=== PATIENT | male | born 1965 | race Caucasian/White ===

== ENCOUNTER 2022-10-15 19:40 | Inpatient (IN) ==
[2022-10-15] MEDS ORDERED: CEFEPIME 2,000 MG/20 ML VIAL IV STA (20:19)
[2022-10-15 20:55] LABS: Albumin Globulin Ratio 1.2 (0.9-2); Albumin Level 3.6 gm/dl (3.4-5.0); BUN Creatinine Ratio 13.3 (10-20); Bilirubin Direct 0.1 mg/dl (0-0.2); Bilirubin,Total 0.5 mg/dl (0.2-1.0); Calcium 8.9 mg/dl (8.5-10.1); Creatinine Clr Calc Pharmacy 94.5 ml/min; Est GFR (African American) 82.6 ml/min; Est GFR (Non-African American) 71.3 ml/min; Globulin 3.1 gm/dl (2.5-4.0); Magnesium 1.9 mg/dl (1.7-2.4); Potassium 3.9 mmol/L (3.5-5.1); Total Protein 6.7 gm/dl (6.0-8.3)
[2022-10-15 20:57] LABS: INR 1.2 (0.9-1.1); Partial Thromboplastin Ratio 1.1; Partial Thromboplastin Time 31.3 Seconds (21.0-31.0); Prothrombin Time 12.2 Seconds (9.0-12.0)
[2022-10-15 21:02] LABS: Troponin I High Sensitivity 27.5 pg/ml (0-20)
[2022-10-15] MEDS ORDERED: VANCOMYCIN CONSULT ACTIVE PRN (21:06)
[2022-10-15] MEDS ORDERED: VANCOMYCIN HCL 2,250 MG in SODIUM CHLORIDE 0.9% 500 ML IV ONE (21:06)
[2022-10-15 21:16] LABS: Influenza A virus by PCR Negative (Neg); Influenza B virus by PCR Negative (Neg); RSV by PCR Negative (Neg)
[2022-10-15 21:18] LABS: SARS CoV2 RNA(COVID-19) Ceph POSITIVE (Negative)
[2022-10-15] MEDS ORDERED: OPTIRAY 320 500ml IV ONE (21:44)
[2022-10-15 22:41] LABS: Basophils # (auto) 0.08 K/uL (0-0.2); Basophils % (auto) 1.1 %; Eosinophils # (auto) 0.24 K/uL (0-0.50); Eosinophils % (auto) 3.3 %; Giant Platelets 2+; Hematocrit (blood only) 27.8 % (42.0-52.0); Hemoglobin 8.7 g/dl (14.0-18.0); Immature Granulocytes # (auto) 0.01 K/uL (0.01-0.20); Immature Granulocytes % (auto) 0.1 %; Lymphocytes # (auto) 2.09 K/uL (1.2-3.4); Lymphocytes % (auto) 28.9 %; Mean Corpuscular Hemoglobin 28.1 pg (25.0-34.0); Mean Corpuscular Hgb Conc 31.3 g/dL (32.0-36.0); Mean Corpuscular Volume 89.7 fL (80.0-100.0); Mean Platelet Volume 13.2 fL (9.4-12.4); Monocytes # (auto) 1.22 K/uL (0.11-0.59); Monocytes % (auto) 16.9 %; Neutrophils # (auto) 3.58 K/uL (1.40-6.50); Neutrophils % (auto) 49.7 %; Platelet Count 517 K/uL (130-400); RDW Coefficient of Variation 15.9 % (11.5-14.5); RDW Standard Deviation 51.1 fL (36.4-46.3); White Blood Count 7.22 K/ul (4.8-10.8)
[2022-10-15 23:55] LABS: Appearance Urine Clear (Clear); Bilirubin Urine Negative (Negative); Blood Urine Negative (Negative); Color Urine Yellow; Glucose Urine UA Negative (Negative); Ketones Urine Negative (Negative); Leukocyte Esterase Urine Negative (Negative); Nitrite Urine Negative (Negative); Protein Urine Negative (Negative); Specific Gravity Urine > 1.045 (1.000-1.030); Urobilinogen Urine Negative (Negative); pH Urine 6.5 (4.5-7.5)
--- NOTE | 2022-10-16 02:17 | Emergency Department Note ---
History of Present Illness General Chief complaint: Fever Stated complaint: HIGH FEVER Time Seen by Provider: 10/15/22 20:08 Source: patient, family (Fihimanshu who is at the bed), old records reviewed (He did have a packet of information from his recent hospitalization in [place] which I reviewed these outside medical records) and friends (Friend who is at the bedside) Mode of arrival: ambulatory Limitations: no limitations History of Present Illness Maximum Pain Intensity: 3 This patient is a 57-year-old male who has a recent splenectomy, comes in after having a fever which started a couple days ago. 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 There was no trauma. He has been healing we ll with the incision. He also has 2 artificial heart valves he tells me. He is on blood thinners. He has been on Lovenox. He feels mildly weak and dizzy he has acute possible shortness of breath he does have a little bit of a cough at times. Had some chills with a fever no focal numbness weakness or trauma no headache neck pain or stiffness has been eating and drinking okay. Minimal abdominal discomfort around incision. He is in town visiting his fiance and has little to no local doctor here Home Medications Medication Instructions Recorded Confirmed Type atorvastatin 20 mg tablet 20 mg PO DAILY 10/15/22 10/15/22 History enoxaparin 120 mg/0.8 mL 120 mg subcut Q12H 10/15/22 10/15/22 History subcutaneous syringe hydrocodone 5 mg-acetaminophen 325 1 tab PO Q4H PRN Pain 10/15/22 10/15/22 History mg tablet metoprolol tartrate 50 mg tablet 50 mg PO BID 10/15/22 10/15/22 History warfarin 2.5 mg tablet 2.5 mg PO DIRECTED 10/15/22 10/15/22 History warfarin 5 mg tablet 5 mg PO DIRECTED 10/15/22 10/15/22 History Allergies Allergy/AdvReac Type Severity Reaction Status Date / Time No Known Allergies Allergy Verified 10/15/22 23:36 Past Med/Surg History Social History Smoking Status: Never smoker Feels Safe at Home: Yes Immunizations: Past medical historyrecent splenectomy. Artificial heart valves, long-term anticoagulation Social history is from [place] Review of Systems A total of 10 systems reviewed and were otherwise negative Physical Exam Vital Signs Vital Signs - 24 hr 10/15/22 19:41 10/15/22 20:12 10/15/22 20:00 Temperature 36.8 C Temperature Source Temporal Artery Scan Pulse Rate 67 60 Pulse Rate [Radial] 63 Pulse Rhythm Regular Pulse Rhythm [Radial] Regular Pulse Strength [Radial] Normal Respiratory Rate 18 17 Respiratory Effort / Characteristics Non-Labored Spontaneous Non-Labored Respiratory Depth Normal Normal Respiratory Pattern Regular Blood Pressure 173/79 H Blood Pressure [Right Arm] 195/99 H Blood Pressure Mean 110 Blood Pressure Mean [Right Arm] 131 Blood Pressure Position Sitting Blood Pressure Position [Right Arm] Lying Pulse Oximetry 98 Oxygen Delivery Method Room Air Sepsis Recent Fever Within 48 Hours Yes Sepsis New/Unexplained Change in Mental Status N/A Sepsis Action Taken by Nursing No Action Required 10/15/22 23:59 10/16/22 01:11 Temperature Temperature Source Pulse Rate 63 Pulse Rate [Radial] 62 Pulse Rhythm Pulse Rhythm [Radial] Pulse Strength [Radial] Respiratory Rate 17 Respiratory Effort / Characteristics Respiratory Depth Respiratory Pattern Blood Pressure Blood Pressure [Right Arm] 163/88 H Blood Pressure Mean Blood Pressure Mean [Right Arm] 113 Blood Pressure Position Blood Pressure Position [Right Arm] Pulse Oximetry 95 Oxygen Delivery Method Room Air Sepsis Recent Fever Within 48 Hours Sepsis New/Unexplained Change in Mental Status Sepsis Action Taken by Nursing General: Well developed well nourished not ill-appearing middle-age male who appears in no acute distress, breathing comfortably on room air. Normal speech HEENT: Normal cephalic atraumatic. Pupils are equal round and reactive to light. Extraocular movements are intact. Oropharynx is pink with moist mucous membranes. No swelling of the mouth lips or tongue. Neck: Supple with a midline trachea. No meningeal signs or stiffness, no JVD or bruits. No Stridor. Chest: Clear to auscultation bilaterally. No wheezes or rhonchi. No increased work of breathing. Heart: Regular rate and rhythm without murmurs or gallops. Abdomen: Soft nontender, nondistended without rebound guarding or rigidity. He has a well-healing central incision there is minimal pink discoloration at the edges but no overt infection or cellulitis no drainage. Central dressing around the wound is intact Extremities: No cyanosis clubbing or edema. No calf tenderness or assymetry Spine/Back. Non tender to palpation. No CVA tenderness Skin: Good turgor without rashes. Neurologic exam: Cranial nerves two through 12 are intact. Motor and sensation are intact and symmetrical throughout. Course Administered Medications Discontinued Medications Cefepime HCl (Maxipime) 2,000 mg in 20 mls @ 5 mls/min IV NOW STA Stop: 10/15/22 20:22 Last Admin: 10/15/22 20:28 Dose: 5 mls/min Documented By: TANK Vancomycin HCl 2,250 mg/ (Sodium Chloride) 545 mls @ 200 mls/hr IV NOW ONE Stop: 10/15/22 23:49 Last Admin: 10/15/22 21:59 Dose: 200 mls/hr Documented By: TANK Ioversol (Optiray 320 500ml) 111 ml IV ONCE ONE Stop: 10/15/22 21:45 Last Admin: 10/15/22 21:45 Dose: 111 ml Documented By: MACKENZIE Medical Decision Making Differential Diagnosis Sepsis, COVID, influenza, pneumonia, PE, postop complication, abscess Medical Records Attestation: I reviewed the patient's medical records. Home Medications Current Medication List: was personally reviewed by me Laboratory Data Attestation: I reviewed the patient's lab results. 10/15/22 20:09 10/15/22 20:09 Lab Results 10/15/22 10/15/22 10/15/22 Range/Units 20:09 20:09 20:09 WBC 7.22 (4.8-10.8) K/ul RBC 3.10 L (4.70-6.10) M/uL Hgb 8.7 L (14.0-18.0) g/dl Hct 27.8 L (42.0-52.0) % MCV 89.7 (80.0-100.0) fL MCH 28.1 (25.0-34.0) pg MCHC 31.3 L (32.0-36.0) g/dL RDW Std Deviation 51.1 H (36.4-46.3) fL RDW Coeff of Waqar 15.9 H (11.5-14.5) % Plt Count 517 H (130-400) K/uL MPV 13.2 H (9.4-12.4) fL Immature Gran % (Auto) 0.1 % Neut % (Auto) 49.7 % Lymph % (Auto) 28.9 % [place] % (Auto) 16.9 % Eos % (Auto) 3.3 % Baso % (Auto) 1.1 % Neut # (Auto) 3.58 (1.40-6.50) K/uL Lymph # (Auto) 2.09 (1.2-3.4) K/uL [place] # (Auto) 1.22 H (0.11-0.59) K/uL Eos # (Auto) 0.24 (0-0.50) K/uL Baso # (Auto) 0.08 (0-0.2) K/uL Immature Gran # (Auto) 0.01 (0.01-0.20) K/uL Giant Platelets 2+ PT 12.2 H (9.0-12.0) Seconds INR 1.2 H (0.9-1.1) APTT 31.3 H (21.0-31.0) Seconds PTT Ratio 1.1 Sodium 142 (136-145) mmol/L Potassium 3.9 (3.5-5.1) mmol/L Chloride 110 H (98-107) mmol/L Carbon Dioxide 26 (21-32) mmol/L Anion Gap 6 (3-11) BUN 15 (6-23) mg/dl Creatinine 1.13 (0.6-1.4) mg/dl Est Cr Clr Drug Dosing 94.5 ml/min Est GFR ( Amer) 82.6 ml/min Est GFR (Non-Af Amer) 71.3 ml/min BUN/Creatinine Ratio 13.3 (10-20) Glucose 99 (70-99(Fasting)) mg/dl Lactate (0.4-2.0) mmol/L Calcium 8.9 (8.5-10.1) mg/dl Magnesium 1.9 (1.7-2.4) mg/dl Total Bilirubin 0.5 (0.2-1.0) mg/dl Direct Bilirubin 0.1 (0-0.2) mg/dl AST 23 (13-39) U/L ALT 17 (7-52) U/L Alkaline Phosphatase 98 (34-104) U/L Troponin I High Sens 27.5 H (0-20) pg/ml Total Protein 6.7 (6.0-8.3) gm/dl Albumin 3.6 (3.4-5.0) gm/dl Globulin 3.1 (2.5-4.0) gm/dl Albumin/Globulin Ratio 1.2 (0.9-2) Procalcitonin (0-0.5) ng/ml Urine Color Urine Appearance (Clear) Urine pH (4.5-7.5) Ur Specific [place] (1.000-1.030) Urine Protein (Negative) Urine Glucose (UA) (Negative) Urine Ketones (Negative) Urine Blood (Negative) Urine Nitrite (Negative) Urine Bilirubin (Negative) Urine Urobilinogen (Negative) Ur Leukocyte Esterase (Negative) SARS-CoV-2 (PCR) (Negative) Influenza Type A (PCR) (Neg) Influenza Type B (PCR) (Neg) RSV (RT-PCR) (Neg) 10/15/22 10/15/22 10/15/22 Range/Units 20:09 20:09 21:17 WBC (4.8-10.8) K/ul RBC (4.70-6.10) M/uL Hgb (14.0-18.0) g/dl Hct (42.0-52.0) % MCV (80.0-100.0) fL MCH (25.0-34.0) pg MCHC (32.0-36.0) g/dL RDW Std Deviation (36.4-46.3) fL RDW Coeff of Waqar (11.5-14.5) % Plt Count (130-400) K/uL MPV (9.4-12.4) fL Immature Gran % (Auto) % Neut % (Auto) % Lymph % (Auto) % [place] % (Auto) % Eos % (Auto) % Baso % (Auto) % Neut # (Auto) (1.40-6.50) K/uL Lymph # (Auto) (1.2-3.4) K/uL [place] # (Auto) (0.11-0.59) K/uL Eos # (Auto) (0-0.50) K/uL Baso # (Auto) (0-0.2) K/uL Immature Gran # (Auto) (0.01-0.20) K/uL Giant Platelets PT (9.0-12.0) Seconds INR (0.9-1.1) APTT (21.0-31.0) Seconds PTT Ratio Sodium (136-145) mmol/L Potassium (3.5-5.1) mmol/L Chloride (98-107) mmol/L Carbon Dioxide (21-32) mmol/L Anion Gap (3-11) BUN (6-23) mg/dl Creatinine (0.6-1.4) mg/dl Est Cr Clr Drug Dosing ml/min Est GFR ( Amer) ml/min Est GFR (Non-Af Amer) ml/min BUN/Creatinine Ratio (10-20) Glucose (70-99(Fasting)) mg/dl Lactate 0.7 (0.4-2.0) mmol/L Calcium (8.5-10.1) mg/dl Magnesium (1.7-2.4) mg/dl Total Bilirubin (0.2-1.0) mg/dl Direct Bilirubin (0-0.2) mg/dl AST (13-39) U/L ALT (7-52) U/L Alkaline Phosphatase (34-104) U/L Troponin I High Sens (0-20) pg/ml Total Protein (6.0-8.3) gm/dl Albumin (3.4-5.0) gm/dl Globulin (2.5-4.0) gm/dl Albumin/Globulin Ratio (0.9-2) Procalcitonin < 0.05 (0-0.5) ng/ml Urine Color Urine Appearance (Clear) Urine pH (4.5-7.5) Ur Specific [place] (1.000-1.030) Urine Protein (Negative) Urine Glucose (UA) (Negative) Urine Ketones (Negative) Urine Blood (Negative) Urine Nitrite (Negative) Urine Bilirubin (Negative) Urine Urobilinogen (Negative) Ur Leukocyte Esterase (Negative) SARS-CoV-2 (PCR) POSITIVE A* (Negative) Influenza Type A (PCR) Negative (Neg) Influenza Type B (PCR) Negative (Neg) RSV (RT-PCR) Negative (Neg) 10/15/22 Range/Units 23:34 WBC (4.8-10.8) K/ul RBC (4.70-6.10) M/uL Hgb (14.0-18.0) g/dl Hct (42.0-52.0) % MCV (80.0-100.0) fL MCH (25.0-34.0) pg MCHC (32.0-36.0) g/dL RDW Std Deviation (36.4-46.3) fL RDW Coeff of Waqar (11.5-14.5) % Plt Count (130-400) K/uL MPV (9.4-12.4) fL Immature Gran % (Auto) % Neut % (Auto) % Lymph % (Auto) % [place] % (Auto) % Eos % (Auto) % Baso % (Auto) % Neut # (Auto) (1.40-6.50) K/uL Lymph # (Auto) (1.2-3.4) K/uL [place] # (Auto) (0.11-0.59) K/uL Eos # (Auto) (0-0.50) K/uL Baso # (Auto) (0-0.2) K/uL Immature Gran # (Auto) (0.01-0.20) K/uL Giant Platelets PT (9.0-12.0) Seconds INR (0.9-1.1) APTT (21.0-31.0) Seconds PTT Ratio Sodium (136-145) mmol/L Potassium (3.5-5.1) mmol/L Chloride (98-107) mmol/L Carbon Dioxide (21-32) mmol/L Anion Gap (3-11) BUN (6-23) mg/dl Creatinine (0.6-1.4) mg/dl Est Cr Clr Drug Dosing ml/min Est GFR ( Amer) ml/min Est GFR (Non-Af Amer) ml/min BUN/Creatinine Ratio (10-20) Glucose (70-99(Fasting)) mg/dl Lactate (0.4-2.0) mmol/L Calcium (8.5-10.1) mg/dl Magnesium (1.7-2.4) mg/dl Total Bilirubin (0.2-1.0) mg/dl Direct Bilirubin (0-0.2) mg/dl AST (13-39) U/L ALT (7-52) U/L Alkaline Phosphatase (34-104) U/L Troponin I High Sens (0-20) pg/ml Total Protein (6.0-8.3) gm/dl Albumin (3.4-5.0) gm/dl Globulin (2.5-4.0) gm/dl Albumin/Globulin Ratio (0.9-2) Procalcitonin (0-0.5) ng/ml Urine Color Yellow Urine Appearance Clear (Clear) Urine pH 6.5 (4.5-7.5) Ur Specific [place] > 1.045 H (1.000-1.030) Urine Protein Negative (Negative) Urine Glucose (UA) Negative (Negative) Urine Ketones Negative (Negative) Urine Blood Negative (Negative) Urine Nitrite Negative (Negative) Urine Bilirubin Negative (Negative) Urine Urobilinogen Negative (Negative) Ur Leukocyte Esterase Negative (Negative) SARS-CoV-2 (PCR) (Negative) Influenza Type A (PCR) (Neg) Influenza Type B (PCR) (Neg) RSV (RT-PCR) (Neg) Imaging Data Attestation: I personally reviewed and interpreted this imaging study as follows: My Impression: Chest x-raycardiomegaly but no overt pneumonia or pneumothorax seen ECG Data Attestation: I personally reviewed and interpreted this ECG as follows: Indication: + weakness Rate (beats per minute): 63 Rhythm: + normal sinus ECG Intervals/blocks: + Left anterior fascicular block, + Right Bundle branch block, + Normal QT and + Normal GA ECG [place]: + Normal ECG ST segments: + Normal ST segments ECG Findings: no PACs or no PVCs Comparison ECG Date: no prior available MDM Narrative This patient is a 57-year-old male who comes in with a fever at home up to 103. he is afebrile here but I am concerned based on his history. He had recent surgery for splenectomy. He also has artificial heart valve so endocarditis would also be potential. He looks well. Given his asplenic state, I did give him cefepime 2 g IV I also gave him vancomycin IV after his renal function came back normal. His white counts not significantly elevated nor his lactic acid. He is he is mildly anemic with a hemoglobin 8 range likely postoperative state. I did a CT angio of his chest as well as abdomen and there are no acute findings which would cause his fever. He did come back positive for COVID. COVID may be causing all of his symptoms but again with his asplenic state I do think he needs to be admitted for cultures which were obtained as well as IV antibiotics and further monitoring. I have consulted Dr. Ramirez, who and explained my concerns and he saw the patient ER will admit him for these measures Impression & Plan COVID, Acquired asplenia, History of artificial heart valve, Current use of fci anticoagulation, Status post splenectomy Discharge Plan Visit Data Chief Complaint: Fever Stated Complaint: HIGH FEVER ED Provider: Keenan Field Discharge Problem: COVID, Acquired asplenia, History of artificial heart valve, Current use of fci anticoagulation, Status post splenectomy Forms Stand Alone Forms: My [facility] Prescriptions Prescriptions: No Action atorvastatin 20 mg tablet 20 mg PO DAILY hydrocodone-acetaminophen 5-325 mg tablet 1 tab PO Q4H PRN (Reason: Pain) warfarin 2.5 mg tablet 2.5 mg PO DIRECTED Rx Instructions: PER PT "7.5-10 MG DAILY DIRECTED". warfarin 5 mg tablet 5 mg PO DIRECTED Rx Instructions: PER PT "7.5-10 MG DAILY DIRECTED". metoprolol tartrate 50 mg tablet 50 mg PO BID enoxaparin 120 mg/0.8 mL syringe 120 mg subcut Q12H Rx Instructions: ORDERED 10/11/22 FOR 10 DAYS. PT DENIES USE. Referrals Referrals: PCP,NO [Primary Care Provider] -
--- NOTE | 2022-10-16 02:46 | History and Physical Report ---
DATE OF ADMISSION: 10/16/2022. CHIEF COMPLAINT: Fever. HISTORY OF PRESENT ILLNESS: A 57-year-old male, Malagasy speaking, but also could speak Slovenian and his [id number] is in the room, She is also helping with H and P. Presents with high fever. The patient has a past medical history significant for mechanical mitral valve replacement and aortic valve replacement 20 years ago, on Coumadin. The patient had a stroke last summer while he was vacationing in [place] was confused and had some brain procedure was done and after that he was doing fine. He is from [place]. His lives in [place] . He travels up and down, but his family doctor is in [place]. 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 He kept it off and seems like he almost passed out and called the EMS and he was taken to [facility] on 10/03/2022 and he was found to have ruptured spleen. Thought to be atraumatic, but the patient says he fell while shoveling snow sometime earlier.Splenectomy done and he was discharged on 10/11/2022. Currently living in [place] with his . And since discharge from 10/12/22 started having high fevers, feeling weak, is not getting better. He came here and found to have COVID positive. Because of recent splenectomy, ER empirically treated him with antibiotics and cultures drawn. After discharge, he was also placed on Lovenox shots for bridging , but the patient says he stopped taking the Lovenox shots today . He was supposed to take Lipitor, but he states he is only taking sometimes. It looks like he is on metoprolol, but the patient says he is only taking Coumadin currently no other meds.. He denies any other medical problems. Resting comfortably . Afebrile here in the hospital. Denies any chest pain. He has cough and runny nose since . Appetite is okay. Denies any headache ,couple of days ago he felt dizzy.. Denies any blurred visions, no sore throat, no nausea, no vomiting, no abdominal pain. With the cough, he has some abdominal discomfort. No diarrhea or constipation. Denies any blood in stool or black stools. Normal bladder movements. No swelling in the legs. ALLERGIES: No known drug allergies. PAST MEDICAL HISTORY: As mentioned above. PAST SURGICAL HISTORY: Brain surgery after stroke, mechanical aortic valve replacement, mechanical mitral valve replacement as per patient, 20 years ago. MEDICATIONS: The patient says taking Coumadin, but it looks like he is also on metoprolol 50 mg b.i.d.,atorvastatin 20 mg p.o. daily and Lovenox 120mg sub bid. FAMILY HISTORY: Denies any family history. SOCIAL HISTORY: Denies smoking, alcohol, or drug use. REVIEW OF SYSTEMS: As per HPI. Rest of the review of systems is negative. PHYSICAL EXAMINATION: GENERAL: The patient is obese, not in acute distress. VITAL SIGNS: Temperature 36.8, pulse 63, respiratory rate 17, blood pressure 195/99, oxygen 98% on room air. HEENT: Pupils equal, round and reactive to light. Oral mucosa moist. NECK: No JVD, no neck masses. CARDIOVASCULAR: S1 and S2 heard. Regular rate and rhythm. No murmur, no gallop. RESPIRATORY SYSTEM: Normal AP diameter. No accessory muscle use. No wheezing, no crackles. ABDOMEN: Soft, bowel sounds are nontender, no distention. CENTRAL NERVOUS SYSTEM: Cranial nerves II through XII are grossly intact. Nonfocal. EXTREMITIES: No edema, no erythema. LABORATORY DATA: WBC 7.2, hemoglobin 8.1, hematocrit 27.8, platelets 517. PT 12.2, INR 1.2, APTT 31.3. Sodium 142, potassium 3.9, chloride 110, CO2 26, BUN 15, creatinine 1.1, serum glucose 99. Lactate 0.7, calcium 8.9, magnesium 1.9, total bilirubin 0.5, direct bilirubin 0.1, AST 23, ALT 27, alkaline phosphatase 98. Troponin I high sensitivity 27.5. Procalcitonin less than 0.05. Urinalysis negative. SARS-CoV-2 PCR positive. Influenza A and B PCR negative. RSV PCR negative IMAGING DATA: CTA of the chest, preliminary report negative for PE, no acute airspace disease, small bilateral pleural effusions, mild bronchial wall thickening compatible with nonspecific bronchial inflammation, reactive airway disease, status post splenectomy, small upper abdominal fluid. CT of abdomen and pelvis, preliminary report, status post splenectomy , postoperative fluid in the upper abdomen, in the abdominal wall or intraabdominal fluid collection ____ abscess or hematoma with minimal fluid extending into the pelvis. Solid organs demonstrated no acute process. Gallbladder is normal. Stomach, small bowel, appendix and large bowel are unremarkable. Chest x-ray, no acute findings. EKG, sinus rhythm with PVCs at rate of 63, right bundle-branch block, left anterior fascicular block, bifascicular block. ASSESSMENT AND PLAN: This is a 57-year-old male, who presents with fevers and weakness and found to be COVID positive. 1. COVID positive. The patient is not vaccinated. Saturating okay on room air. CTA chest, no obvious pulmonary lesions. We will do COVID precautions and monitor. Start IV fluids.Currently afebrile 2. Recent splenectomy. The patient was empirically started on iv vancomycin and cefepime in ER as he was having fevers. Will continue until until cultures are back. Monitor in the hospital. 3. 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 Currently, INR is 1.2. Supposed to be on Lovenox bridge but seems not taking it.. Will do Lovenox bridge and Coumadin. Monitor PT/INR. 4. History of cerebrovascular accident. The patient is supposed to be on statin, but noncompliant with it . 5.Questionable history of hypertension.Seems on metoprolol, but the patient is not taking any other medications except Coumadin. We will monitor his blood pressure. Continue his metoprolol . hydralazine p.r.n.To clarify with patient again. 5. Anemia. Hemoglobin 8.7. As per sisster in law his blood count dropped from splenic rupture. Looks like supposed to be on iron pills, but he is not taking. We will check his stool for Hemoccult, iron studies, vitamin B12, folate levels and follow the labs. 6. Deep venous thrombosis prophylaxis: Lovenox and Coumadin. Follow the PT/INR. DISPOSITION: Closely monitor in the med tele. PT/OT prior to discharge. Social service to help with discharge planning. Job ID: [id number] [facility]
[2022-10-16] MEDS ORDERED: ACETAMINOPHEN 325 MG TAB PO PRN (03:39)
[2022-10-16] MEDS ORDERED: NITROGLYCERIN SL 0.4 MG/TAB TAB SL PRN (03:39)
[2022-10-16] MEDS ORDERED: hydrALAZINE HCL 20 MG/ML VIAL IV PRN (03:39)
[2022-10-16] MEDS ORDERED: ENOXAPARIN INJ 120 MG/0.8 ML SYR SQ STA (03:46)
[2022-10-16] MEDS: SODIUM CHLORIDE 0.9% 1000ML 1,000 ML IV SCH ×2 (03:50→15:54)
[2022-10-16] MEDS: CEFEPIME 2,000 MG in SYRINGE 0 ML IV SCH ×3 (04:01→21:13)
--- NOTE | 2022-10-16 04:08 | Pharmacy Report ---
Pharmacy Vanc AUC Short Note - Date of Service October 16, 2022 - Assessment & Plan Assessment * 57 year old M receiving VANCOMYCIN + CEFEPIME for treatment of fever in the setting of recent splenectomy. Pharmacy consulted for vanco dosing. * Pertinent microbiologic data includes: + COVID19, negative procalcitonin, BLCX's x 2 pending Plan Vancomycin * AUC/JOSE is the preferred PK/PD target for vancomycin * AUC guided dosing is effective and associated with decreased risk of nephrotoxicity compared to traditional trough targets * Loading dose: 2250mg x 1 * Maint does: 1000mg Q 12 hrs, to begin at 0600 today * Will check level with 2nd or 3rd maint dose if therapy to continue Pharmacy will continue to follow and will adjust dose/frequency as necessary. Thank you.
[2022-10-16] MEDS ORDERED: VANCOMYCIN HCL 1,000 MG in SODIUM CHLORIDE 0.9% 250 ML IV SCH (06:00)
[2022-10-16 07:06] LABS: Hematocrit (blood only) 24.7 % (42.0-52.0); Hemoglobin 7.9 g/dl (14.0-18.0); Mean Corpuscular Hemoglobin 27.9 pg (25.0-34.0); Mean Corpuscular Volume 87.3 fL (80.0-100.0); Mean Platelet Volume 13.3 fL (9.4-12.4); Platelet Count 452 K/uL (130-400); RDW Coefficient of Variation 15.8 % (11.5-14.5); RDW Standard Deviation 50.4 fL (36.4-46.3); Red Blood Count 2.83 M/uL (4.70-6.10)
[2022-10-16 07:12] LABS: BUN Creatinine Ratio 15.5 (10-20); Calcium 8.4 mg/dl (8.5-10.1); Creatinine Clr Calc Pharmacy 127.2 ml/min; Est GFR (African American) 111.9 ml/min; Est GFR (Non-African American) 96.5 ml/min; Magnesium 1.8 mg/dl (1.7-2.4); Potassium 3.4 mmol/L (3.5-5.1)
[2022-10-16 07:14] LABS: Iron 12 mcg/dl (35-175); Total Iron Binding Cap Calc 256 mcg/dl (250-450); Transferrin (FE) Percent Satur 5 % (20-50); Unsaturated Iron Binding Cap 244 mcg/dl (155-355)
[2022-10-16 07:20] LABS: Basophils # (auto) 0.07 K/uL (0-0.2); Eosinophils # (auto) 0.27 K/uL (0-0.50); Eosinophils % (auto) 3.9 %; Immature Granulocytes # (auto) 0.02 K/uL (0.01-0.20); Immature Granulocytes % (auto) 0.3 %; Lymphocytes # (auto) 1.71 K/uL (1.2-3.4); Lymphocytes % (auto) 24.4 %; Monocytes # (auto) 0.91 K/uL (0.11-0.59); Neutrophils # (auto) 4.02 K/uL (1.40-6.50); Neutrophils % (auto) 57.4 %; Poikilocytosis Present; Polychromasia 1+
[2022-10-16 07:29] LABS: INR 1.2 (0.9-1.1); Prothrombin Time 12.4 Seconds (9.0-12.0)
--- NOTE | 2022-10-16 07:53 | CT Scan Report ---
CT SCAN OF THE ABDOMEN AND PELVIS WITH IV CONTRAST CLINICAL HISTORY: Fever. Recent splenectomy. COMPARISON STUDY: No priors. TECHNIQUE: Following the IV administration of 111 cc of Optiray 320, CT scan of the abdomen and pelv is is performed from the lung bases to the proximal femora. Images are reviewed in the axial, sagitta l, and coronal planes. IV contrast was administered without complication. A dose lowering technique w as utilized adhering to the principles of ALARA. CT DOSE: 1675.57 mGy.cm FINDINGS: Lung bases: The patient is status post midline sternotomy and cardiac valve surgeries. The heart is e nlarged and without pericardial effusion. The coronary arteries are densely calcified. There are trac e pleural effusions with dependent atelectasis. Mild intralobular septal thickening is noted at the l kortney bases. Liver: The contrast-enhanced liver is normal in size, contour, and attenuation. There is no intrahepa tic biliary ductal dilatation. The hepatic veins and portal veins are patent. Scattered hepatic cysts measure up to 15 mm. Gallbladder: Unremarkable. Spleen: The spleen is not identified and reported surgically absent. No fluid collection is seen in t he operative bed. Pancreas: Moderately atrophic and grossly unremarkable. Adrenal glands: Unremarkable. Kidneys: The contrast enhanced kidneys are normal in size and without hydronephrosis. The kidneys enh ance symmetrically. A subcentimeter cortical hypodensity in the left lower pole likely represents a c yst but is too small for definitive characterization. Abdominal vasculature: The abdominal aorta is normal in course and caliber. Bowel: There is mild colonic diverticulosis without CT evidence of acute diverticulitis. No bowel obs truction is seen. The appendix is well-visualized and normal. Peritoneum: There is trace abdominopelvic ascites. No intraperitoneal free air is identified. Mild in filtration of the upper abdominal mesentery is likely related to recent surgery. There is a fat-conta ining umbilical hernia. Soft tissue induration and skin clips are noted in the anterior abdominal wal l. Lymphadenopathy: None. Pelvic viscera: The bladder, prostate, and seminal vesicles unremarkable as visualized. Skeletal structures: The skeletal structures are osteopenic. There is mild lumbosacral spondylosis. N o lytic or blastic lesions are seen. IMPRESSION: 1. The spleen is surgically absent. No organized fluid collection is identified in the operative bed. 2. There is trace abdominopelvic ascites, as well as mild infiltration in the upper abdominal mesente ry. This is nonspecific and may be related to recent surgery. 3. Cardiomegaly with evidence of fluid overload/mild congestive change. 4. Trace pleural effusions. 5. Colonic diverticulosis without CT evidence of acute diverticulitis. 6. Additional findings as above. ACT 112: Negative or not required by law. Electronically signed by: Carlos Clifford M.D. 10/16/2022 7:51 AM
--- NOTE | 2022-10-16 08:57 | XRay Report ---
XR chest 1V portable CLINICAL HISTORY: Sepsis. COMPARISON STUDY: No previous studies for comparison. FINDINGS: There are median sternotomy wires and prosthetic cardiac valves. Moderate cardiomegaly is n oted. Small left and trace right pleural effusions are present. There is no consolidation to suggest pneumonia. There is vascular/chin. Mild left basilar opacity favors atelectasis. No pneumothorax. IMPRESSION: Cardiomegaly. Pulmonary vascular congestion with small left and trace right pleural effu sions. ACT 112: Negative or not required by law. Electronically signed by: Louie Connor M.D. 10/16/2022 8:56 AM
--- NOTE | 2022-10-16 09:08 | CT Scan Report ---
CT ANGIOGRAPHY OF THE CHEST, PULMONARY EMBOLUS PROTOCOL CLINICAL HISTORY: Dizziness. Recent surgery. COMPARISON STUDY: Chest radiograph performed earlier today. TECHNIQUE: Following IV administration of 111 mL of Optiray, helical axial images of the chest were o btained utilizing the pulmonary embolus protocol. Maximal intensity projections and sagittal and cor onal reformats were viewed on an independent 3D workstation. IV contrast was administered without co mplication. Automated exposure control was utilized for the study. A dose lowering technique was ut ilized adhering to the principles of ALARA. FINDINGS: No pulmonary emboli are identified. There is moderate cardiomegaly. There are prosthetic m itral and aortic valve. No thoracic aortic dissection is present. Moderate dilatation of the central pulmonary arteries is present. There is no pericardial effusion. There are prominent bilateral hilar lymph nodes. Trace bilateral pleural effusions are present. There is no pneumothorax. There is mild i nterlobular septal thickening. Postoperative findings consistent with recent splenectomy are noted. T he abdomen and pelvis CT will be reported separately. IMPRESSION: 1. No pulmonary emboli identified. 2. Cardiomegaly. Trace bilateral pleural effusions with suspected mild interstitial pulmonary edema. 3. Dilatation of the central pulmonary arteries. This raises the possibility of pulmonary arterial hy pertension. ACT 112: Negative or not required by law. Electronically signed by: Louie Connor M.D. 10/16/2022 9:06 AM
[2022-10-16] MEDS: METOPROLOL TARTRATE 50 MG TAB PO SCH ×2 (09:35→21:11)
[2022-10-16] MEDS: ATORVASTATIN 20 MG TAB PO SCH (09:42)
--- NOTE | 2022-10-16 10:45 | Electrocardiogram Report ---
Test Reason : Blood Pressure : / mmHG Vent. Rate : 063 BPM Atrial Rate : 063 BPM P-R Int : 170 ms QRS Dur : 158 ms QT Int : 474 ms P-R-T Axes : 052 -45 009 degrees QTc Int : 485 ms Sinus rhythm with Premature supraventricular complexes Right bundle branch block Left anterior fascicular block Bifascicular block Abnormal ECG No previous ECGs available Confirmed by Eleuterio Jarrett ([id number]) on 10/16/2022 10:45:00 AM Referred By: REFERRED SELF Confirmed By:Jose R Jarrett
[2022-10-16] MEDS ORDERED: ENOXAPARIN INJ 120 MG/0.8 ML SYR SQ SCH ×2 (11:00→18:00)
[2022-10-16] MEDS ORDERED: Heparin IV Adult Wt-Based Standard *NO* Bolus Protocol IV SCH (11:04)
[2022-10-16] MEDS ORDERED: Heparin IV Adult Wt-Based Low-Dose *NO* Bolus Protocol IV SCH (11:08)
[2022-10-16] MEDS ORDERED: HEPARIN SODIUM/DEXTROSE 25,000 UNITS/500 ML BAG IV SCH (11:30)
[2022-10-16] MEDS: HEPARIN SODIUM/DEXTROSE 25,000 UNITS/500 ML BAG IV SCH (13:01)
[2022-10-16 13:13] LABS: Partial Thromboplastin Ratio 1.1; Partial Thromboplastin Time 30.4 Seconds (21.0-31.0)
[2022-10-16] MEDS ORDERED: WARFARIN SOD 7.5 MG TAB PO SCH (16:00)
[2022-10-16] MEDS: VANCOMYCIN HCL 1,500 MG in SODIUM CHLORIDE 0.9% 500 ML IV SCH (18:10)
[2022-10-16 19:57] LABS: Hemoglobin 7.7 g/dl (14.0-18.0)
[2022-10-16 20:39] LABS: Partial Thromboplastin Ratio 1.1; Partial Thromboplastin Time 31.4 Seconds (21.0-31.0)
[2022-10-16] MEDS ORDERED: Nursing to Pharmacy Communication SCH (21:00)
[2022-10-16] MEDS ORDERED: HEPARIN SOD (PORCINE) 1000 UNIT/ML IV ONE (21:54)
[2022-10-17] MEDS: SODIUM CHLORIDE 0.9% 1000ML 1,000 ML IV SCH ×2 (00:52→13:38)
[2022-10-17] MEDS: CEFEPIME 2,000 MG in SYRINGE 0 ML IV SCH ×3 (04:45→20:41)
[2022-10-17] MEDS: VANCOMYCIN HCL 1,500 MG in SODIUM CHLORIDE 0.9% 500 ML IV SCH ×2 (04:45→17:59)
[2022-10-17 05:08] LABS: Hematocrit (blood only) 23.3 % (42.0-52.0); Hemoglobin 7.4 g/dl (14.0-18.0); Mean Corpuscular Hgb Conc 31.8 g/dL (32.0-36.0); Mean Corpuscular Volume 88.3 fL (80.0-100.0); Mean Platelet Volume 13.2 fL (9.4-12.4); Platelet Count 441 K/uL (130-400); RDW Coefficient of Variation 15.7 % (11.5-14.5); RDW Standard Deviation 50.1 fL (36.4-46.3); Red Blood Count 2.64 M/uL (4.70-6.10); White Blood Count 7.31 K/ul (4.8-10.8)
[2022-10-17 05:11] LABS: BUN Creatinine Ratio 14.4 (10-20); Calcium 7.9 mg/dl (8.5-10.1); Est GFR (African American) 108.7 ml/min; Est GFR (Non-African American) 93.8 ml/min; Magnesium 1.7 mg/dl (1.7-2.4); Phosphorus 3.1 mg/dl (2.5-4.9); Potassium 3.6 mmol/L (3.5-5.1)
[2022-10-17 05:15] LABS: INR 1.2 (0.9-1.1); Partial Thromboplastin Ratio 1.5; Partial Thromboplastin Time 40.4 Seconds (21.0-31.0); Prothrombin Time 12.4 Seconds (9.0-12.0)
--- NOTE | 2022-10-17 07:45 | Hospitalist Progress Note ---
Date of Service October 17, 2022 Assessment & Plan (1) Acquired asplenia: (2) COVID: (3) History of artificial heart valve: Plan: This is a 57-year-old male, who presents with fevers and weakness and found to be COVID positive. 1. COVID positive. The patient is not vaccinated. Saturating okay on room air. CTA chest, no obvious pulmonary lesions. COVID precautions and monitor. Currently afebrile 2. Recent splenectomy. The patient was empirically started on iv vancomycin and cefepime in ER as he was having fevers. Will continue until until cultures are back. Monitor in the hospital. Blood cultx - pending Requested medical records. 3. 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 On admission INR is 1.2. Supposed to be on Lovenox bridge and Coumadin. Started IV heparin Hgb low but seems stable, CT abd/pelvis w/o bleed noted Also no other obvious bleed Monitor PT/INR. 4. Anemia - acute blood loss, pt s/p recent splenectomy at [place], [place] supposed to be on iron pills, but he is not taking, resume iron supplement Patient and [id number] in the room, reported patient received blood transfusions in [facility] in [place]. Current hemoglobin 7.4 Patient reports no issues or problems with blood transfusions given there Blood consent obtained will check his stool for Hemoccult Plan to transfuse 1 unit of PRBCs Continue to monitor H&H 5. History of cerebrovascular accident. The patient is supposed to be on statin, but noncompliant with it . 6.Questionable history of hypertension.Seems on metoprolol, but the patient is not taking any other medications except Coumadin ?. We will monitor his blood pressure. Continue his metoprolol . hydralazine p.r.n.To clarify with patient again. DVT ppx - IV heparin - plan to restart coumadin DISPOSITION:med tele. PT/OT prior to discharge. Admission and Anticipated Discharge Date Admission Date: October 16, 2022 Subjective Pt seen in follow up of fever, s/p recent splenectomy, hx of mechanical valves Patient is currently sitting up in bed, in no acute distress. Denies any abdominal pain, denies any blood in the stool, denies fevers chills, chest pain shortness of breath Overall reports feeling well Afebrile. Patient's [id number] present at the bedside and also able to provide some history. She says that patient had several blood transfusions in [facility]. When he was home initially he felt okay, however then at noon spiked fever and did not feel well. She says that he already looks much better. She will try to bring some records about his hosp. stay next time she comes to the hospital. Asked Ariel Urena to pls obtain medical records as well. Review of Systems Review of Systems: All systems reviewed & are unremarkable except as noted in Subjective Physical Exam Physical Exam: GENERAL: WD/WN M in NAD, not in acute distress. HEENT:NC/AT. EOMI. Pupils equal, round and reactive to light. Oral mucosa moist. NECK: No JVD, no neck masses. CARDIOVASCULAR: S1 and S2 heard. Regular rate and rhythm. No murmur, no gallop. RESPIRATORY: Normal AP diameter. No accessory muscle use. No wheezing, no crackles. ABDOMEN: Soft, bowel sounds are nontender, no distention. NEURO:Awake alert oriented, answering questions appropriately, speech fluent, no facial asymmetry, moves extremities EXTREMITIES: No edema, no erythema. Results & Data Results & Data ([facility]) Vital Signs (Past 12 Hours) Vital Signs Temp Pulse Pulse Resp BP Pulse Ox Pulse Ox 10/17/22 03:39 98 10/17/22 07:14 56 L 10/17/22 03:22 36.9 C 54 L 18 138/82 96 10/16/22 21:59 57 L 10/16/22 20:00 10/16/22 22:58 36.9 C 54 L 18 168/77 H 94 O2 Del Method O2 Del Method 10/17/22 03:39 Room Air 10/17/22 07:14 10/17/22 03:22 Room Air 10/16/22 21:59 10/16/22 20:00 Room Air 10/16/22 22:58 Room Air Laboratory Results 10/17/22 10/17/22 10/17/22 Range/Units 04:33 04:33 04:33 WBC 7.31 (4.8-10.8) K/ul RBC 2.64 L (4.70-6.10) M/uL Hgb 7.4 L (14.0-18.0) g/dl Hct 23.3 L (42.0-52.0) % MCV 88.3 (80.0-100.0) fL MCH 28.0 (25.0-34.0) pg MCHC 31.8 L (32.0-36.0) g/dL RDW Std Deviation 50.1 H (36.4-46.3) fL RDW Coeff of Waqar 15.7 H (11.5-14.5) % Plt Count 441 H (130-400) K/uL MPV 13.2 H (9.4-12.4) fL PT 12.4 H (9.0-12.0) Seconds INR 1.2 H (0.9-1.1) APTT 40.4 H (21.0-31.0) Seconds PTT Ratio 1.5 Sodium 142 (136-145) mmol/L Potassium 3.6 (3.5-5.1) mmol/L Chloride 113 H (98-107) mmol/L Carbon Dioxide 26 (21-32) mmol/L Anion Gap 3 (3-11) BUN 13 (6-23) mg/dl Creatinine 0.90 (0.6-1.4) mg/dl Est Cr Clr Drug Dosing 120.0 ml/min Est GFR ( Amer) 108.7 ml/min Est GFR (Non-Af Amer) 93.8 ml/min BUN/Creatinine Ratio 14.4 (10-20) Glucose 106 H (70-99(Fasting)) mg/dl Calcium 7.9 L (8.5-10.1) mg/dl Phosphorus 3.1 (2.5-4.9) mg/dl Magnesium 1.7 (1.7-2.4) mg/dl 10/16/22 10/16/22 10/16/22 Range/Units 19:40 19:40 12:13 WBC (4.8-10.8) K/ul RBC (4.70-6.10) M/uL Hgb 7.7 L (14.0-18.0) g/dl Hct 25.0 L (42.0-52.0) % MCV (80.0-100.0) fL MCH (25.0-34.0) pg MCHC (32.0-36.0) g/dL RDW Std Deviation (36.4-46.3) fL RDW Coeff of Waqar (11.5-14.5) % Plt Count (130-400) K/uL MPV (9.4-12.4) fL PT (9.0-12.0) Seconds INR (0.9-1.1) APTT 31.4 H 30.4 (21.0-31.0) Seconds PTT Ratio 1.1 1.1 Sodium (136-145) mmol/L Potassium (3.5-5.1) mmol/L Chloride (98-107) mmol/L Carbon Dioxide (21-32) mmol/L Anion Gap (3-11) BUN (6-23) mg/dl Creatinine (0.6-1.4) mg/dl Est Cr Clr Drug Dosing ml/min Est GFR ( Amer) ml/min Est GFR (Non-Af Amer) ml/min BUN/Creatinine Ratio (10-20) Glucose (70-99(Fasting)) mg/dl Calcium (8.5-10.1) mg/dl Phosphorus (2.5-4.9) mg/dl Magnesium (1.7-2.4) mg/dl Medications Administered Current Inpatient Medications Acetaminophen (Acetaminophen 325 Mg Tab) 650 mg PO Q4H PRN PRN Reason: Pain or Fever Stop: 11/15/22 03:38 Atorvastatin Calcium (Atorvastatin 20 Mg Tab) 20 mg PO DAILY [facility] Stop: 11/15/22 08:59 Last Admin: 10/16/22 09:42 Dose: 20 mg Ferrous Sulfate (Ferrous Sulfate 325 Mg Tab) 325 mg PO BIDM [facility] Stop: 11/16/22 07:59 Hydralazine HCl (Hydralazine Hcl 20 Mg/Ml Vial) 7.5 mg IV Q6H PRN PRN Reason: Hypertension Stop: 11/15/22 03:38 Sodium Chloride (Nss 1000ml) 1,000 mls @ 100 mls/hr IV .Q10H [facility] Stop: 11/15/22 03:38 Last Admin: 10/17/22 00:52 Dose: 100 mls/hr Cefepime HCl 2,000 mg/ Syringe 20 mls @ 5 mls/min IV Q8H [facility]; Protocol Stop: 10/26/22 03:59 Last Admin: 10/17/22 04:45 Dose: 5 mls/min Vancomycin HCl 1,500 mg/ (Sodium Chloride) 530 mls @ 200 mls/hr IV Q12H [facility]; Protocol Stop: 10/26/22 17:59 Last Admin: 10/17/22 04:45 Dose: 200 mls/hr Heparin Sodium/Dextrose (Heparin Sodium/Dextrose) 25,000 units in 500 mls @ 26 mls/hr IV .[id number] [facility]; Protocol Stop: 11/15/22 11:29 Last Titration: 10/17/22 06:51 Dose: 1,300 units/hr, 26 mls/hr Magnesium Oxide (Magnesium Oxide 400 Mg Tab) 400 mg PO QAM [facility] Stop: 11/16/22 08:59 Metoprolol Tartrate (Metoprolol Tartrate 50 Mg Tab) 50 mg PO BID [facility] Stop: 11/15/22 08:59 Last Admin: 10/16/22 21:11 Dose: Not Given Miscellaneous Information (Vancomycin Consult Active) 1 each N/A UD PRN PRN Reason: Consult Stop: 11/14/22 21:05 Nitroglycerin (Nitroglycerin Sl 0.4 Mg/Tab Tab) 0.4 mg SL Q5M PRN PRN Reason: Chest Pain Stop: 11/15/22 03:38 Warfarin Sodium (Warfarin Sod 7.5 Mg Tab) 7.5 mg PO DAILY@1600 [facility] Stop: 11/15/22 15:59
[2022-10-17] MEDS: FERROUS SULFATE 325 MG TAB PO SCH ×2 (09:02→17:00)
[2022-10-17] MEDS: ATORVASTATIN 20 MG TAB PO SCH (09:03)
[2022-10-17] MEDS: METOPROLOL TARTRATE 50 MG TAB PO SCH ×2 (09:03→20:26)
[2022-10-17] MEDS: MAGNESIUM OXIDE 400 MG TAB PO SCH (09:03)
[2022-10-17] MEDS: HEPARIN SODIUM/DEXTROSE 25,000 UNITS/500 ML BAG IV SCH ×2 (09:12→13:38)
[2022-10-17] MEDS ORDERED: Nursing to Pharmacy Communication SCH (11:00)
[2022-10-17] MEDS ORDERED: SODIUM CHLORIDE 0.9% 250 ML IV PRN (12:24)
[2022-10-17 12:36] LABS: Partial Thromboplastin Ratio 1.3; Partial Thromboplastin Time 35.2 Seconds (21.0-31.0)
[2022-10-17] MEDS ORDERED: HEPARIN IV BOLUS 4,000 UNITS in SYRINGE 0 ML IV ONE (13:00)
[2022-10-17] MEDS ORDERED: POLYETHYLENE (MIRALAX) 17 GM PACK PO ONE (17:00)
[2022-10-17 20:07] LABS: Partial Thromboplastin Ratio 1.4; Partial Thromboplastin Time 38.2 Seconds (21.0-31.0)
[2022-10-18] MEDS: SODIUM CHLORIDE 0.9% 1000ML 1,000 ML IV SCH ×2 (01:00→10:57)
[2022-10-18 03:01] LABS: Partial Thromboplastin Ratio 1.7; Partial Thromboplastin Time 47.6 Seconds (21.0-31.0)
[2022-10-18] MEDS: CEFEPIME 2,000 MG in SYRINGE 0 ML IV SCH ×3 (05:00→20:40)
[2022-10-18] MEDS: HEPARIN SODIUM/DEXTROSE 25,000 UNITS/500 ML BAG IV SCH ×2 (05:06→16:58)
[2022-10-18] MEDS ORDERED: VANCOMYCIN LEVEL ONE (05:30)
[2022-10-18 08:14] LABS: Hematocrit (blood only) 24.9 % (42.0-52.0); Hemoglobin 7.9 g/dl (14.0-18.0); Mean Corpuscular Hemoglobin 27.8 pg (25.0-34.0); Mean Corpuscular Hgb Conc 31.7 g/dL (32.0-36.0); Mean Corpuscular Volume 87.7 fL (80.0-100.0); Mean Platelet Volume 14.1 fL (9.4-12.4); Platelet Count 441 K/uL (130-400); RDW Coefficient of Variation 15.8 % (11.5-14.5); RDW Standard Deviation 50.2 fL (36.4-46.3); Red Blood Count 2.84 M/uL (4.70-6.10); White Blood Count 7.89 K/ul (4.8-10.8)
[2022-10-18 08:34] LABS: INR 1.1 (0.9-1.1); Prothrombin Time 11.9 Seconds (9.0-12.0)
--- NOTE | 2022-10-18 08:40 | Hospitalist Progress Note ---
Date of Service October 18, 2022 Assessment & Plan (1) Acquired asplenia: (2) COVID: (3) History of artificial heart valve: Plan: This is a 57-year-old male, who presents with fevers and weakness and found to be COVID positive. 1. COVID positive. The patient is not vaccinated. Saturating okay on room air. CTA chest, no obvious pulmonary lesions. COVID precautions and monitor. Currently afebrile 2. Fever, Recent splenectomy. The patient was empirically started on iv vancomycin and cefepime in ER as he was having fevers. Blood cultx - negat.48 hrs Vanco stopped - cont. w/ cefepime Requested medical records from [facility] and reviewed Pt was found in his truck, was brought to the hospital on 10/03/2022 and was taken immediately to OR for splenectomy d/t splenic rupture. He received multiple units of pRBCs as well as FFP to correct coagulopathy secondary to coumadin. Postoperatively he became suddenly hypotensive with evidence of blood loss and was taken back to OR where ligation of a bleeding short gastric vessel was per formed. Pt had short course of CRRT due to RON, but his kidneys quickly recovered and no further dialysis was necessary. He was on iv heparin and coumadin was resumed but INR was subtherapeutic. Car diology was consulted and placed him on lovenox bridge on discharge. His hemoglobin was stable for 3 days prior to discharge. Half of the grace from his midline incision were removed upon discharge. He was given splenectomy vaccines prior to discharge. 3. 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 On admission INR is 1.2. Supposed to be on Lovenox bridge and Coumadin. Started IV heparin Hgb low but seems stable, CT abd/pelvis w/o bleed noted Also no other obvious bleed. Hgb 7.9 - stable from yesterday - will start on coumadin today and cont. to closely monitor blood ct Monitor PT/INR. 4. Anemia - acute blood loss, pt s/p recent splenectomy at [place], [place] supposed to be on iron pills, but he is not taking, resume iron supplement Received multiple blood transfusions in [facility] Blood consent obtained Hemoccult ordered Transfuse 1 unit of PRBCs yesterday Continue to monitor H&H 5. History of cerebrovascular accident. The patient is supposed to be on statin, but noncompliant with it . 6.Questionable history of hypertension.Seems on metoprolol, but the patient is not taking any other medications except Coumadin ?.Reviewed med. record from [facility] - cardiology did not feel metoprolol necessary. Pt has short episode of Afib there though. We will monitor his blood pressure. metoprolol was started here . hydralazine p.r.n. DVT ppx - IV heparin - plan to restart coumadin DISPOSITION:med tele. PT/OT prior to discharge. Admission and Anticipated Discharge Date Admission Date: October 16, 2022 Subjective Pt seen in follow up of fever, s/p recent splenectomy, hx of mechanical valves Patient is currently sitting up in bed, in no acute distress. Denies any abdominal pain, denies any blood in the stool, denies fevers chills, chest pain shortness of breath Overall reports feeling well Afebrile. Reviewed medical records from [facility] where he underwent splenectomy. Review of Systems Review of Systems: All systems reviewed & are unremarkable except as noted in Subjective Physical Exam Physical Exam: GENERAL: WD/WN M in NAD, not in acute distress. HEENT:NC/AT. EOMI. Pupils equal, round and reactive to light. Oral mucosa moist. NECK: No JVD, no neck masses. CARDIOVASCULAR: S1 and S2 heard. Regular rate and rhythm. No murmur, no gallop. RESPIRATORY: Normal AP diameter. No accessory muscle use. No wheezing, no crackles. ABDOMEN: Soft, bowel sounds are nontender, no distention. NEURO:Awake alert oriented, answering questions appropriately, speech fluent, no facial asymmetry, moves extremities EXTREMITIES: No edema, no erythema. Results & Data Results & Data ([facility]) Vital Signs (Past 12 Hours) Vital Signs Temp Pulse Pulse Resp BP Pulse Ox O2 Del Method 10/18/22 07:56 36.9 C 54 L 16 174/94 H 94 Room Air 10/17/22 22:00 58 L 10/18/22 03:45 37.0 C 54 L 18 166/82 H 96 Room Air 10/17/22 23:25 37.0 C 63 18 185/82 H 96 Room Air Laboratory Results 10/19/22 10/19/22 10/19/22 Range/Units Unknown 11:02 05:32 WBC (4.8-10.8) K/ul RBC (4.70-6.10) M/uL Hgb (14.0-18.0) g/dl Hct (42.0-52.0) % MCV (80.0-100.0) fL MCH (25.0-34.0) pg MCHC (32.0-36.0) g/dL RDW Std Deviation (36.4-46.3) fL RDW Coeff of Waqar (11.5-14.5) % Plt Count (130-400) K/uL MPV (9.4-12.4) fL PT (9.0-12.0) Seconds INR (0.9-1.1) APTT 30.3 (21.0-31.0) Seconds PTT Ratio 1.1 Sodium (136-145) mmol/L Potassium (3.5-5.1) mmol/L Chloride (98-107) mmol/L Carbon Dioxide (21-32) mmol/L Anion Gap (3-11) BUN (6-23) mg/dl Creatinine (0.6-1.4) mg/dl Est Cr Clr Drug Dosing ml/min Est GFR ( Amer) ml/min Est GFR (Non-Af Amer) ml/min BUN/Creatinine Ratio (10-20) Glucose (70-99(Fasting)) mg/dl Calcium (8.5-10.1) mg/dl Phosphorus (2.5-4.9) mg/dl Magnesium 1.7 (1.7-2.4) mg/dl Total Bilirubin (0.2-1.0) mg/dl AST (13-39) U/L ALT (7-52) U/L Alkaline Phosphatase (34-104) U/L Total Protein (6.0-8.3) gm/dl Albumin (3.4-5.0) gm/dl Globulin (2.5-4.0) gm/dl Albumin/Globulin Ratio (0.9-2) Stool Occult Bld Scrn Negative (Negative) 10/19/22 10/19/22 10/19/22 Range/Units 05:32 05:32 05:32 WBC 8.77 (4.8-10.8) K/ul RBC 2.86 L (4.70-6.10) M/uL Hgb 7.9 L (14.0-18.0) g/dl Hct 25.1 L (42.0-52.0) % MCV 87.8 (80.0-100.0) fL MCH 27.6 (25.0-34.0) pg MCHC 31.5 L (32.0-36.0) g/dL RDW Std Deviation 49.8 H (36.4-46.3) fL RDW Coeff of Waqar 15.6 H (11.5-14.5) % Plt Count 426 H (130-400) K/uL MPV 13.7 H (9.4-12.4) fL PT 12.0 (9.0-12.0) Seconds INR 1.1 (0.9-1.1) APTT (21.0-31.0) Seconds PTT Ratio Sodium 141 (136-145) mmol/L Potassium 3.5 (3.5-5.1) mmol/L Chloride 110 H (98-107) mmol/L Carbon Dioxide 26 (21-32) mmol/L Anion Gap 5 (3-11) BUN 11 (6-23) mg/dl Creatinine 0.93 (0.6-1.4) mg/dl Est Cr Clr Drug Dosing 115.4 ml/min Est GFR ( Amer) 104.5 ml/min Est GFR (Non-Af Amer) 90.2 ml/min BUN/Creatinine Ratio 11.8 (10-20) Glucose 106 H (70-99(Fasting)) mg/dl Calcium 8.5 (8.5-10.1) mg/dl Phosphorus 2.9 (2.5-4.9) mg/dl Magnesium (1.7-2.4) mg/dl Total Bilirubin 0.4 (0.2-1.0) mg/dl AST 16 (13-39) U/L ALT 13 (7-52) U/L Alkaline Phosphatase 85 (34-104) U/L Total Protein 6.1 (6.0-8.3) gm/dl Albumin 3.2 L (3.4-5.0) gm/dl Globulin 2.9 (2.5-4.0) gm/dl Albumin/Globulin Ratio 1.1 (0.9-2) Stool Occult Bld Scrn (Negative) Medications Administered Current Inpatient Medications Acetaminophen (Acetaminophen 325 Mg Tab) 650 mg PO Q4H PRN PRN Reason: Pain or Fever Stop: 11/15/22 03:38 Atorvastatin Calcium (Atorvastatin 20 Mg Tab) 20 mg PO DAILY [facility] Stop: 11/15/22 08:59 Last Admin: 10/17/22 09:03 Dose: 20 mg Ferrous Sulfate (Ferrous Sulfate 325 Mg Tab) 325 mg PO BIDM [facility] Stop: 11/16/22 07:59 Last Admin: 10/17/22 17:00 Dose: 325 mg Hydralazine HCl (Hydralazine Hcl 20 Mg/Ml Vial) 7.5 mg IV Q6H PRN PRN Reason: Hypertension Stop: 11/15/22 03:38 Sodium Chloride (Nss 1000ml) 1,000 mls @ 100 mls/hr IV .Q10H [facility] Stop: 11/15/22 03:38 Last Admin: 10/18/22 01:00 Dose: 100 mls/hr Cefepime HCl 2,000 mg/ Syringe 20 mls @ 5 mls/min IV Q8H [facility]; Protocol Stop: 10/26/22 03:59 Last Admin: 10/18/22 05:00 Dose: 5 mls/min Vancomycin HCl 1,500 mg/ (Sodium Chloride) 530 mls @ 200 mls/hr IV Q12H [facility]; Protocol Stop: 10/26/22 17:59 Last Infusion: 10/17/22 20:41 Dose: Infused Heparin Sodium/Dextrose (Heparin Sodium/Dextrose) 25,000 units in 500 mls @ 32 mls/hr IV .[id number] [facility]; Protocol Stop: 11/15/22 11:29 Last Titration: 10/18/22 07:02 Dose: 1,600 units/hr, 32 mls/hr Magnesium Oxide (Magnesium Oxide 400 Mg Tab) 400 mg PO QAM [facility] Stop: 11/16/22 08:59 Last Admin: 10/17/22 09:03 Dose: 400 mg Metoprolol Tartrate (Metoprolol Tartrate 50 Mg Tab) 50 mg PO BID [facility] Stop: 11/15/22 08:59 Last Admin: 10/17/22 20:26 Dose: Not Given Miscellaneous Information (Vancomycin Consult Active) 1 each N/A UD PRN PRN Reason: Consult Stop: 11/14/22 21:05 Nitroglycerin (Nitroglycerin Sl 0.4 Mg/Tab Tab) 0.4 mg SL Q5M PRN PRN Reason: Chest Pain Stop: 11/15/22 03:38 Warfarin Sodium (Warfarin Sod 7.5 Mg Tab) 7.5 mg PO DAILY@1600 [facility] Stop: 11/15/22 15:59
[2022-10-18 08:49] LABS: BUN Creatinine Ratio 14.1 (10-20); Calcium 8.3 mg/dl (8.5-10.1); Creatinine Clr Calc Pharmacy 151.1 ml/min; Est GFR (African American) 119.9 ml/min; Est GFR (Non-African American) 103.4 ml/min; Magnesium 1.6 mg/dl (1.7-2.4); Phosphorus 2.6 mg/dl (2.5-4.9); Potassium 3.6 mmol/L (3.5-5.1)
[2022-10-18] MEDS: METOPROLOL TARTRATE 50 MG TAB PO SCH ×2 (08:50→20:53)
[2022-10-18] MEDS: FERROUS SULFATE 325 MG TAB PO SCH ×2 (08:50→16:07)
[2022-10-18] MEDS: MAGNESIUM OXIDE 400 MG TAB PO SCH (08:51)
[2022-10-18] MEDS: ATORVASTATIN 20 MG TAB PO SCH (08:51)
[2022-10-18] MEDS: VANCOMYCIN HCL 1,500 MG in SODIUM CHLORIDE 0.9% 500 ML IV SCH (08:54)
--- NOTE | 2022-10-18 09:11 | Pharmacy Report ---
Pharmacy Vanc AUC Short Note - Date of Service October 18, 2022 - Assessment & Plan Assessment 57 year old M receiving vancomycin for treatment of GI infection and fevers. Pertinent microbiologic data includes: blood culture growing NGTD. Day # 12/03 of antimicrobial therapy. Plan Vancomycin * AUC/JOSE is the preferred PK/PD target for vancomycin * AUC guided dosing is effective and associated with decreased risk of nephrotoxicity compared to traditional trough targets * Trough level of 10.4 mcg/mL is predicted to less than target AUC/JOSE of 400- 600 mg/L.hr and may be associated with a 8 % risk of nephrotoxicity * Change to 1750 mg IV every 12 hours * Trough to be ordered if continued > 48 hours Pharmacy will continue to follow and will adjust dose/frequency as necessary. Thank you.
[2022-10-18] MEDS ORDERED: MAGNESIUM SULFATE / D5W 1 GM/100 ML BAG IV ONE (16:30)
[2022-10-18] MEDS ORDERED: FUROSEMIDE 40 MG TAB PO ONE (16:41)
[2022-10-18] MEDS ORDERED: VANCOMYCIN HCL 750 MG in SODIUM CHLORIDE 0.9% 500 ML IV SCH (21:00)
[2022-10-18] MEDS ORDERED: VANCOMYCIN HCL 1,750 MG in SODIUM CHLORIDE 0.9% 500 ML IV SCH (21:00)
[2022-10-19] MEDS: CEFEPIME 2,000 MG in SYRINGE 0 ML IV SCH ×3 (05:00→20:46)
[2022-10-19] MEDS ORDERED: POTASSIUM CHLORIDE CRTAB 20 MEQ TABCR PO STA (05:23)
[2022-10-19] MEDS ORDERED: MAGNESIUM SULFATE / D5W 1 GM/100 ML BAG IV ONE (05:30)
[2022-10-19 06:15] LABS: Albumin Globulin Ratio 1.1 (0.9-2); Albumin Level 3.2 gm/dl (3.4-5.0); BUN Creatinine Ratio 11.8 (10-20); Bilirubin,Total 0.4 mg/dl (0.2-1.0); Calcium 8.5 mg/dl (8.5-10.1); Creatinine Clr Calc Pharmacy 115.4 ml/min; Est GFR (African American) 104.5 ml/min; Est GFR (Non-African American) 90.2 ml/min; Globulin 2.9 gm/dl (2.5-4.0); Phosphorus 2.9 mg/dl (2.5-4.9); Potassium 3.5 mmol/L (3.5-5.1); Total Protein 6.1 gm/dl (6.0-8.3)
[2022-10-19 06:29] LABS: Hematocrit (blood only) 25.1 % (42.0-52.0); Hemoglobin 7.9 g/dl (14.0-18.0); Mean Corpuscular Hemoglobin 27.6 pg (25.0-34.0); Mean Corpuscular Hgb Conc 31.5 g/dL (32.0-36.0); Mean Corpuscular Volume 87.8 fL (80.0-100.0); Mean Platelet Volume 13.7 fL (9.4-12.4); Platelet Count 426 K/uL (130-400); RDW Coefficient of Variation 15.6 % (11.5-14.5); RDW Standard Deviation 49.8 fL (36.4-46.3); Red Blood Count 2.86 M/uL (4.70-6.10); White Blood Count 8.77 K/ul (4.8-10.8)
[2022-10-19 06:46] LABS: INR 1.1 (0.9-1.1)
[2022-10-19] MEDS: METOPROLOL TARTRATE 50 MG TAB PO SCH ×2 (07:17→20:46)
--- NOTE | 2022-10-19 07:55 | Hospitalist Progress Note ---
Date of Service October 19, 2022 Assessment & Plan (1) Acquired asplenia: (2) COVID: (3) History of artificial heart valve: Plan: This is a 57-year-old male, who presents with fevers and weakness and found to be COVID positive. 1. COVID positive. The patient is not vaccinated. Saturating okay on room air. CTA chest, no obvious pulmonary lesions. COVID precautions and monitor. Currently afebrile 2. Fever, Recent splenectomy. The patient was empirically started on iv vancomycin and cefepime in ER as he was having fevers. Blood cultx - negat.48 hrs Vanco stopped - cont. w/ cefepime Requested medical records from [facility] and reviewed Pt was found in his truck, was brought to the hospital on 10/03/2022 and was taken immediately to OR for splenectomy d/t splenic rupture. He received multiple units of pRBCs as well as FFP to correct coagulopathy secondary to coumadin. Postoperatively he became suddenly hypotensive with evidence of blood loss and was taken back to OR where ligation of a bleeding short gastric vessel was per formed. Pt had short course of CRRT due to RON, but his kidneys quickly recovered and no further dialysis was necessary. He was on iv heparin and coumadin was resumed but INR was subtherapeutic. Car diology was consulted and placed him on lovenox bridge on discharge. postoperatively he was noted to be in afib but on discharge without tachycardia and therefore cardiology did not feel metoprolol indicated. His hemoglobin was stable for 3 days prior to discharge. Half of the grace from his midline incision were removed upon discharge. He was given splenectomy vaccines prior to discharge. Post splenectomy vaccines given: Bexsero (Meningitis B) 0.5 mL IM vaccine, Menveo 0.5 mL IM vaccine, PedvaxHIB 0.5mL IM vaccine, Pneumococcal 20-valent conjugate IM 0.5mL vaccine Pt is to follow up with PCP regarding second vaccine dose, and for removal of remaining grace. He is to continue to wear abdominal binder until he is 6 weeks out from surgery. 3. 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 On admission INR is 1.2. Supposed to be on Lovenox bridge and Coumadin. Started IV heparin Hgb low but seems stable, CT abd/pelvis w/o bleed noted Also no other obvious bleed. Hgb 7.9 - stable from yesterday - start on coumadin today and cont. to closely monitor blood ct Monitor PT/INR. 4. Anemia - acute blood loss, pt s/p recent splenectomy at [place], [place] supposed to be on iron pills, but he is not taking, resume iron supplement Received multiple blood transfusions in [facility] Blood consent obtained Hemoccult - negative Transfused 1 unit of PRBCs. Hgb stable. Continue to monitor H&H 5. History of cerebrovascular accident. The patient is supposed to be on statin, but noncompliant with it . 6.Questionable history of hypertension.Seems on metoprolol, but the patient is not taking any other medications except Coumadin ?.Reviewed med. record from [facility] - cardiology did not feel metoprolol necessary. Pt had short episode of Afib there post-op though. We will monitor his blood pressure. metoprolol was started here on admission . hydralazine p.r.n. DVT ppx - IV heparin - resume coumadin DISPOSITION:med tele. PT/OT prior to discharge. Admission and Anticipated Discharge Date Admission Date: October 16, 2022 Subjective Pt seen in follow up of fever, s/p recent splenectomy, hx of mechanical valve/s Patient is currently sitting up in chair, in no acute distress. Denies any abdominal pain, denies any blood in the stool, denies fevers chills, chest pain shortness of breath Overall reports feeling well Afebrile. Hgb stable 7.9 - restart coumadin Reviewed medical records from [facility] where he underwent splenectomy. Review of Systems Review of Systems: All systems reviewed & are unremarkable except as noted in Subjective Physical Exam Physical Exam: GENERAL: WD/WN M in NAD, not in acute distress. HEENT:NC/AT. EOMI. Pupils equal, round and reactive to light. Oral mucosa moist. NECK: No JVD, no neck masses. CARDIOVASCULAR: S1 and S2 heard. Regular rate and rhythm. No murmur, no gallop. RESPIRATORY: Normal AP diameter. No accessory muscle use. No wheezing, no crackles. ABDOMEN: Soft, bowel sounds are nontender, no distention. + surg. grace present (no erythema or drainage noted) NEURO:Awake alert oriented, answering questions appropriately, speech fluent, no facial asymmetry, moves extremities EXTREMITIES: No edema, no erythema. Results & Data Results & Data ([facility]) Vital Signs (Past 12 Hours) Vital Signs Temp Pulse Pulse Resp BP Pulse Ox O2 Del Method 10/19/22 05:00 36.6 C 56 L 18 154/71 H 95 Room Air 10/18/22 21:58 60 10/18/22 20:00 36.6 C 57 L 18 128/80 97 Room Air 10/18/22 20:00 Room Air 10/18/22 22:00 37.0 C 60 20 129/71 95 Room Air Laboratory Results 10/19/22 10/19/22 10/19/22 Range/Units Unknown 05:32 05:32 WBC (4.8-10.8) K/ul RBC (4.70-6.10) M/uL Hgb (14.0-18.0) g/dl Hct (42.0-52.0) % MCV (80.0-100.0) fL MCH (25.0-34.0) pg MCHC (32.0-36.0) g/dL RDW Std Deviation (36.4-46.3) fL RDW Coeff of Waqar (11.5-14.5) % Plt Count (130-400) K/uL MPV (9.4-12.4) fL PT (9.0-12.0) Seconds INR (0.9-1.1) Sodium 141 (136-145) mmol/L Potassium 3.5 (3.5-5.1) mmol/L Chloride 110 H (98-107) mmol/L Carbon Dioxide 26 (21-32) mmol/L Anion Gap 5 (3-11) BUN 11 (6-23) mg/dl Creatinine 0.93 (0.6-1.4) mg/dl Est Cr Clr Drug Dosing 115.4 ml/min Est GFR ( Amer) 104.5 ml/min Est GFR (Non-Af Amer) 90.2 ml/min BUN/Creatinine Ratio 11.8 (10-20) Glucose 106 H (70-99(Fasting)) mg/dl Calcium 8.5 (8.5-10.1) mg/dl Phosphorus 2.9 (2.5-4.9) mg/dl Magnesium 1.7 (1.7-2.4) mg/dl Total Bilirubin 0.4 (0.2-1.0) mg/dl AST 16 (13-39) U/L ALT 13 (7-52) U/L Alkaline Phosphatase 85 (34-104) U/L Total Protein 6.1 (6.0-8.3) gm/dl Albumin 3.2 L (3.4-5.0) gm/dl Globulin 2.9 (2.5-4.0) gm/dl Albumin/Globulin Ratio 1.1 (0.9-2) Stool Occult Bld Scrn Negative (Negative) Random Vancomycin (10-20) mcg/ml 10/19/22 10/19/22 10/18/22 Range/Units 05:32 05:32 07:18 WBC 8.77 (4.8-10.8) K/ul RBC 2.86 L (4.70-6.10) M/uL Hgb 7.9 L (14.0-18.0) g/dl Hct 25.1 L (42.0-52.0) % MCV 87.8 (80.0-100.0) fL MCH 27.6 (25.0-34.0) pg MCHC 31.5 L (32.0-36.0) g/dL RDW Std Deviation 49.8 H (36.4-46.3) fL RDW Coeff of Waqar 15.6 H (11.5-14.5) % Plt Count 426 H (130-400) K/uL MPV 13.7 H (9.4-12.4) fL PT 12.0 (9.0-12.0) Seconds INR 1.1 (0.9-1.1) Sodium (136-145) mmol/L Potassium (3.5-5.1) mmol/L Chloride (98-107) mmol/L Carbon Dioxide (21-32) mmol/L Anion Gap (3-11) BUN (6-23) mg/dl Creatinine (0.6-1.4) mg/dl Est Cr Clr Drug Dosing ml/min Est GFR ( Amer) ml/min Est GFR (Non-Af Amer) ml/min BUN/Creatinine Ratio (10-20) Glucose (70-99(Fasting)) mg/dl Calcium (8.5-10.1) mg/dl Phosphorus (2.5-4.9) mg/dl Magnesium (1.7-2.4) mg/dl Total Bilirubin (0.2-1.0) mg/dl AST (13-39) U/L ALT (7-52) U/L Alkaline Phosphatase (34-104) U/L Total Protein (6.0-8.3) gm/dl Albumin (3.4-5.0) gm/dl Globulin (2.5-4.0) gm/dl Albumin/Globulin Ratio (0.9-2) Stool Occult Bld Scrn (Negative) Random Vancomycin 10.4 (10-20) mcg/ml 10/18/22 10/18/22 10/18/22 Range/Units 07:18 07:18 07:18 WBC 7.89 (4.8-10.8) K/ul RBC 2.84 L (4.70-6.10) M/uL Hgb 7.9 L (14.0-18.0) g/dl Hct 24.9 L (42.0-52.0) % MCV 87.7 (80.0-100.0) fL MCH 27.8 (25.0-34.0) pg MCHC 31.7 L (32.0-36.0) g/dL RDW Std Deviation 50.2 H (36.4-46.3) fL RDW Coeff of Waqar 15.8 H (11.5-14.5) % Plt Count 441 H (130-400) K/uL MPV 14.1 H (9.4-12.4) fL PT 11.9 (9.0-12.0) Seconds INR 1.1 (0.9-1.1) Sodium 142 (136-145) mmol/L Potassium 3.6 (3.5-5.1) mmol/L Chloride 114 H (98-107) mmol/L Carbon Dioxide 23 (21-32) mmol/L Anion Gap 5 (3-11) BUN 10 (6-23) mg/dl Creatinine 0.71 (0.6-1.4) mg/dl Est Cr Clr Drug Dosing 151.1 ml/min Est GFR ( Amer) 119.9 ml/min Est GFR (Non-Af Amer) 103.4 ml/min BUN/Creatinine Ratio 14.1 (10-20) Glucose 98 (70-99(Fasting)) mg/dl Calcium 8.3 L (8.5-10.1) mg/dl Phosphorus 2.6 (2.5-4.9) mg/dl Magnesium 1.6 L (1.7-2.4) mg/dl Total Bilirubin (0.2-1.0) mg/dl AST (13-39) U/L ALT (7-52) U/L Alkaline Phosphatase (34-104) U/L Total Protein (6.0-8.3) gm/dl Albumin (3.4-5.0) gm/dl Globulin (2.5-4.0) gm/dl Albumin/Globulin Ratio (0.9-2) Stool Occult Bld Scrn (Negative) Random Vancomycin (10-20) mcg/ml Medications Administered Current Inpatient Medications Acetaminophen (Acetaminophen 325 Mg Tab) 650 mg PO Q4H PRN PRN Reason: Pain or Fever Stop: 11/15/22 03:38 Atorvastatin Calcium (Atorvastatin 20 Mg Tab) 20 mg PO DAILY [facility] Stop: 11/15/22 08:59 Last Admin: 10/18/22 08:51 Dose: 20 mg Ferrous Sulfate (Ferrous Sulfate 325 Mg Tab) 325 mg PO BIDM [facility] Stop: 11/16/22 07:59 Last Admin: 10/18/22 16:07 Dose: 325 mg Hydralazine HCl (Hydralazine Hcl 20 Mg/Ml Vial) 7.5 mg IV Q6H PRN PRN Reason: Hypertension Stop: 11/15/22 03:38 Cefepime HCl 2,000 mg/ Syringe 20 mls @ 5 mls/min IV Q8H [facility]; Protocol Stop: 10/26/22 03:59 Last Admin: 10/19/22 05:00 Dose: 5 mls/min Heparin Sodium/Dextrose (Heparin Sodium/Dextrose) 25,000 units in 500 mls @ 32 mls/hr IV .[id number] [facility]; Protocol Stop: 11/15/22 11:29 Last Titration: 10/19/22 06:57 Dose: 1,600 units/hr, 32 mls/hr Magnesium Oxide (Magnesium Oxide 400 Mg Tab) 400 mg PO QAM [facility] Stop: 11/16/22 08:59 Last Admin: 10/18/22 08:51 Dose: 400 mg Metoprolol Tartrate (Metoprolol Tartrate 50 Mg Tab) 50 mg PO BID [facility] Stop: 11/15/22 08:59 Last Admin: 10/19/22 07:17 Dose: Not Given Nitroglycerin (Nitroglycerin Sl 0.4 Mg/Tab Tab) 0.4 mg SL Q5M PRN PRN Reason: Chest Pain Stop: 11/15/22 03:38 Warfarin Sodium (Warfarin Sod 7.5 Mg Tab) 7.5 mg PO DAILY@1600 [facility] Stop: 11/15/22 15:59
[2022-10-19] MEDS: FERROUS SULFATE 325 MG TAB PO SCH ×2 (08:42→18:11)
[2022-10-19] MEDS: ATORVASTATIN 20 MG TAB PO SCH (08:42)
[2022-10-19] MEDS: MAGNESIUM OXIDE 400 MG TAB PO SCH (08:42)
[2022-10-19] MEDS: HEPARIN SODIUM/DEXTROSE 25,000 UNITS/500 ML BAG IV SCH ×5 (10:58→23:58)
[2022-10-19 11:51] LABS: Partial Thromboplastin Ratio 1.1; Partial Thromboplastin Time 30.3 Seconds (21.0-31.0)
[2022-10-19] MEDS ORDERED: HEPARIN SOD (PORCINE) 1000 UNIT/ML IV ONE (12:18)
[2022-10-19] MEDS ORDERED: WARFARIN SOD 7.5 MG TAB PO SCH (18:00)
[2022-10-19 20:46] LABS: Partial Thromboplastin Time 54.7 Seconds (21.0-31.0)
[2022-10-20] MEDS: CEFEPIME 2,000 MG in SYRINGE 0 ML IV SCH ×2 (04:06→11:57)
[2022-10-20 08:23] LABS: Albumin Globulin Ratio 1.1 (0.9-2); Albumin Level 3.3 gm/dl (3.4-5.0); BUN Creatinine Ratio 15.9 (10-20); Bilirubin,Total 0.4 mg/dl (0.2-1.0); Calcium 8.9 mg/dl (8.5-10.1); Creatinine Clr Calc Pharmacy 130.8 ml/min; Est GFR (Non-African American) 97.5 ml/min; Magnesium 1.8 mg/dl (1.7-2.4); Phosphorus 3.1 mg/dl (2.5-4.9); Potassium 3.7 mmol/L (3.5-5.1); Total Protein 6.3 gm/dl (6.0-8.3)
[2022-10-20 08:26] LABS: Hematocrit (blood only) 26.9 % (42.0-52.0); Hemoglobin 8.3 g/dl (14.0-18.0); Mean Corpuscular Hemoglobin 27.4 pg (25.0-34.0); Mean Corpuscular Hgb Conc 30.9 g/dL (32.0-36.0); Mean Corpuscular Volume 88.8 fL (80.0-100.0); Mean Platelet Volume 14.1 fL (9.4-12.4); Nucleated RBC # (auto) 0.03 K/uL (0-0.12); Nucleated RBC % (auto) 0.3 %; Platelet Count 429 K/uL (130-400); RDW Coefficient of Variation 15.8 % (11.5-14.5); RDW Standard Deviation 50.4 fL (36.4-46.3); Red Blood Count 3.03 M/uL (4.70-6.10); White Blood Count 8.63 K/ul (4.8-10.8)
[2022-10-20 08:51] LABS: INR 1.2 (0.9-1.1); Partial Thromboplastin Ratio 1.8; Prothrombin Time 12.4 Seconds (9.0-12.0)
[2022-10-20 08:54] LABS: Partial Thromboplastin Time 49.9 Seconds (21.0-31.0)
[2022-10-20] MEDS: METOPROLOL TARTRATE 50 MG TAB PO SCH (08:56)
[2022-10-20] MEDS: MAGNESIUM OXIDE 400 MG TAB PO SCH (09:05)
[2022-10-20] MEDS: ATORVASTATIN 20 MG TAB PO SCH (09:05)
[2022-10-20] MEDS: FERROUS SULFATE 325 MG TAB PO SCH (09:05)
[2022-10-20] MEDS ORDERED: ENOXAPARIN 1 MG/KG SQ SCH (09:45)
[2022-10-20] MEDS ORDERED: ENOXAPARIN INJ 120 MG/0.8 ML SYR SQ SCH (10:00)
--- NOTE | 2022-10-20 13:10 | Hospitalist Progress Note ---
Date of Service October 20, 2022 Assessment & Plan (1) Acquired asplenia: (2) COVID: (3) History of artificial heart valve: Plan: Patient is a 57 yr male, who presents with fevers and weakness and found to be COVID positive. COVID 19 infection Not vaccinated for COVID 19 CTA chest: No signs of pneumonia Normal Procalcitonin On COVID precautions Saturating well on room air Generalized weakness and fevers Secondary to above Blood Cultures: No growth to date UA not suggestive of UTI CTA showed no signs of pneumonia CT abdomen not suggestive of any infection Empiric IV vancomycin, cefepime and discontinued Resolved . S/P recent splenectomy As per Prior hospitalist: [facility] and reviewed Pt was found in his truck, was brought to the hospital on 10/03/2022 and was taken immediately to OR for splenectomy d/t splenic rupture. He received multiple units of pRBCs as well as FFP to correct coagulopathy secondary to coumadin. Postoperatively he became suddenly hypotensive with evidence of blood loss and was taken back to OR where ligation of a bleeding short gastric vessel was performed. Pt had short course of CRRT due to RON, but his kidneys quickly recovered and no further dialysis was necessary. He was on iv heparin and coumadin was resumed but INR was subtherapeutic. Cardiology was consulted and placed him on lovenox bridge on discharge. postoperatively he was noted to be in afib but on discharge without tachycardia and therefore cardiology did not feel metoprolol indicated. His hemoglobin was stable for 3 days prior to discharge. Half of the grace from his midline incision were removed upon discharge. He was given splenectomy vaccines prior to discharge. Post splenectomy vaccines given: Bexsero (Meningitis B) 0.5 mL IM vaccine, Menveo 0.5 mL IM vaccine, PedvaxHIB 0.5mL IM vaccine, Pneumococcal 20-valent conjugate IM 0.5mL vaccine --- Patient had currently normal acute bleeding issues while on anticoagulation with IV heparin and Coumadin --- Advised to follow-up with PCP/surgeon at [facility] for further recommendations on second dose of vaccines and surgical wound care/staple removal upon discharge --- Advised to continue to use abdominal binder until follow-up with surgeon Sinus bradycardia Bifascicular block on EKG Asymptomatic Metoprolol discontinued Advised to follow-up with cardiology upon discharge H/O Mechanical mitral valve and mechanical aortic valve replacement Subtherapeutic INR On Lovenox bridge to Coumadin prior to admission INR 1.2 Continue Coumadin 7.5 mg today Advised to continue Lovenox SQ and Coumadin till INR is therapeutic and then to continue Coumadin alone Advised to follow-up with Coumadin clinic upon discharge Acute blood loss anemia postsplenectomy at [place], [place] Iron deficiency anemia S/P 1 unit PRBC FOBT Negative Continue iron supplements Hemoglobin stable H/O CVA noncompliant with statin Continue statin As per Prior hospitalist: Questionable history of hypertension.Seems on metoprolol, but the patient is not taking any other medications except Coumadin ?.Reviewed med. record from [facility] - cardiology did not feel metoprolol necessary. Pt had short episode of Afib there post-op though. We will monitor his blood pressure. metoprolol was started here on admission . hydralazine p.r.n. --- Blood pressure stable currently. We will discontinue metoprolol due to bifascicular block, bradycardia. Currently not on any medications. DVT Px Lovenox SQ, Coumadin CODE STATUS Full code Disposition Home Admission and Anticipated Discharge Date Admission Date: October 16, 2022 Subjective Patient is seen and examined at bedside States feeling well today Eager to get discharged Denies any cough, chest pain, shortness of breath, dizziness, nausea, abdominal pain Also denies any bleeding issues Discussed with patient's at bedside and also over the phone Saturating well on room air Review of Systems Review of Systems: All systems reviewed & are unremarkable except as noted in Subjective Physical Exam Physical Exam: Physical Exam: Vitals signs as noted above General Appearance:Moderately built and nourished, no apparent distress Head: normocephalic, Atraumatic Eyes: normal inspection, EOMI Neck: supple, Trachea midline Respiratory/Chest: Decreased breath sounds, CTA, No accessory muscle use Cardiovascular: S1, S2, No murmur, + mechanical heart sounds Abdomen/GI:Soft, Non tender, Bowel sounds present, + vertical postsurgical scar, grace, no signs of infection Extremities/Musculoskeletal:normal inspection, chronic venous stasis, trace edema Neurologic/Psych:AAOX3, grossly no focal neurological deficits Skin: normal color, warm Results & Data Results & Data ([facility]) Vital Signs (Past 12 Hours) Vital Signs Temp Pulse Pulse Resp BP Pulse Ox O2 Del Method 10/20/22 12:14 36.8 C 51 L 18 118/60 96 Room Air 10/20/22 08:20 36.7 C 47 L 18 142/74 H 94 Room Air 10/20/22 07:47 48 L 10/20/22 04:20 36.9 C 50 L 18 154/85 H 95 Room Air 10/20/22 02:57 O2 Del Method 10/20/22 12:14 10/20/22 08:20 10/20/22 07:47 10/20/22 04:20 10/20/22 02:57 Room Air Laboratory Results Short CBC 10/20/22 Range/Units 07:17 WBC 8.63 (4.8-10.8) K/ul Hgb 8.3 L (14.0-18.0) g/dl Hct 26.9 L (42.0-52.0) % Plt Count 429 H (130-400) K/uL BMP 10/20/22 07:17 Sodium 141 Potassium 3.7 Chloride 109 H Carbon Dioxide 27 BUN 13 Creatinine 0.82 Glucose 98 Calcium 8.9 Liver Function 10/20/22 Range/Units 07:17 Total Bilirubin 0.4 (0.2-1.0) mg/dl AST 17 (13-39) U/L ALT 14 (7-52) U/L Alkaline Phosphatase 85 (34-104) U/L Albumin 3.3 L (3.4-5.0) gm/dl
--- NOTE | 2022-10-20 14:41 | Discharge Summary ---
Date of Service October 20, 2022 Admission HPI Per Admitting Provider CHIEF COMPLAINT: Fever. HISTORY OF PRESENT ILLNESS: A 57-year-old male, Cambodian speaking, but also could speak Greenlandic and his [id number] is in the room, She is also helping with H and P. Presents with high fever. The patient has a past medical history significant for mechanical mitral valve replacement and aortic valve replacement 20 years ago, on Coumadin. The patient had a stroke last summer while he was vacationing in [place] was confused and had some brain procedure was done and after that he was doing fine. He is from [place]. His lives in [place] . He travels up and down, but his family doctor is in [place]. 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 He kept it off and seems like he almost passed out and called the EMS and he was taken to [facility] on 10/03/2022 and he was found to have ruptured spleen. Thought to be atraumatic, but the patient says he fell while shoveling snow sometime earlier.Splenectomy done and he was discharged on 10/11/2022. Currently living in [place] with his . And since discharge from 10/12/22 started having high fevers, feeling weak, is not getting better. He came here and found to have COVID positive. Because of recent splenectomy, ER empirically treated him with antibiotics and cultures drawn. After discharge, he was also placed on Lovenox shots for bridging , but the patient says he stopped taking the Lovenox shots today . He was supposed to take Lipitor, but he states he is only taking sometimes. It looks like he is on metoprolol, but the patient says he is only taking Coumadin currently no other meds.. He denies any other medical problems. Resting comfortably . Afebrile here in the hospital. Denies any chest pain. He has cough and runny nose since . Appetite is okay. Denies any headache ,couple of days ago he felt dizzy.. Denies any blurred visions, no sore throat, no nausea, no vomiting, no abdominal pain. With the cough, he has some abdominal discomfort. No diarrhea or constipation. Denies any blood in stool or black stools. Normal bladder movements. No swelling in the legs. Admission Exam Per Admitting Provider PHYSICAL EXAMINATION: GENERAL: The patient is obese, not in acute distress. VITAL SIGNS: Temperature 36.8, pulse 63, respiratory rate 17, blood pressure 195/99, oxygen 98% on room air. HEENT: Pupils equal, round and reactive to light. Oral mucosa moist. NECK: No JVD, no neck masses. CARDIOVASCULAR: S1 and S2 heard. Regular rate and rhythm. No murmur, no gallop. RESPIRATORY SYSTEM: Normal AP diameter. No accessory muscle use. No wheezing, no crackles. ABDOMEN: Soft, bowel sounds are nontender, no distention. CENTRAL NERVOUS SYSTEM: Cranial nerves II through XII are grossly intact. Nonfocal. EXTREMITIES: No edema, no erythema. Principal Diagnosis COVID-19 Infection Postsplenectomy state Subtherapeutic INR Postoperative blood loss anemia Bifascicular block Sinus bradycardia Discharge Data Allergies Allergy/AdvReac Type Severity Reaction Status Date / Time No Known Allergies Allergy Verified 10/15/22 23:36 Procedures Performed Laboratory Results WBC 8.63 K/ul (4.8-10.8) 10/20/22 07:17 RBC 3.03 M/uL (4.70-6.10) L 10/20/22 07:17 Hgb 8.3 g/dl (14.0-18.0) L 10/20/22 07:17 Hct 26.9 % (42.0-52.0) L 10/20/22 07:17 MCV 88.8 fL (80.0-100.0) 10/20/22 07:17 MCH 27.4 pg (25.0-34.0) 10/20/22 07:17 MCHC 30.9 g/dL (32.0-36.0) L 10/20/22 07:17 RDW Std Deviation 50.4 fL (36.4-46.3) H 10/20/22 07:17 RDW Coeff of Waqar 15.8 % (11.5-14.5) H 10/20/22 07:17 Plt Count 429 K/uL (130-400) H 10/20/22 07:17 MPV 14.1 fL (9.4-12.4) H 10/20/22 07:17 Immature Gran % (Auto) 0.3 % 10/16/22 06:26 Neut % (Auto) 57.4 % 10/16/22 06:26 Lymph % (Auto) 24.4 % 10/16/22 06:26 Stafford % (Auto) 13.0 % 10/16/22 06:26 Eos % (Auto) 3.9 % 10/16/22 06:26 Baso % (Auto) 1.0 % 10/16/22 06:26 Neut # (Auto) 4.02 K/uL (1.40-6.50) 10/16/22 06:26 Lymph # (Auto) 1.71 K/uL (1.2-3.4) 10/16/22 06:26 Stafford # (Auto) 0.91 K/uL (0.11-0.59) H 10/16/22 06:26 Eos # (Auto) 0.27 K/uL (0-0.50) 10/16/22 06:26 Baso # (Auto) 0.07 K/uL (0-0.2) 10/16/22 06:26 Immature Gran # (Auto) 0.02 K/uL (0.01-0.20) 10/16/22 06:26 Absolute Nucleated RBC 0.03 K/uL (0-0.12) 10/20/22 07:17 Nucleated RBC % (auto) 0.3 % 10/20/22 07:17 Giant Platelets 2+ 10/15/22 20:09 Polychromasia 1+ 10/16/22 06:26 Poikilocytosis Present 10/16/22 06:26 PT 12.4 Seconds (9.0-12.0) H 10/20/22 07:17 INR 1.2 (0.9-1.1) H 10/20/22 07:17 APTT 49.9 Seconds (21.0-31.0) H* 10/20/22 07:17 PTT Ratio 1.8 10/20/22 07:17 Sodium 141 mmol/L (136-145) 10/20/22 07:17 Potassium 3.7 mmol/L (3.5-5.1) 10/20/22 07:17 Chloride 109 mmol/L (98-107) H 10/20/22 07:17 Carbon Dioxide 27 mmol/L (21-32) 10/20/22 07:17 Anion Gap 5 (3-11) 10/20/22 07:17 BUN 13 mg/dl (6-23) 10/20/22 07:17 Creatinine 0.82 mg/dl (0.6-1.4) 10/20/22 07:17 Est Cr Clr Drug Dosing 130.8 ml/min 10/20/22 07:17 Est GFR ( Amer) 113.0 ml/min 10/20/22 07:17 Est GFR (Non-Af Amer) 97.5 ml/min 10/20/22 07:17 BUN/Creatinine Ratio 15.9 (10-20) 10/20/22 07:17 Glucose 98 mg/dl (70-99(Fasting)) 10/20/22 07:17 Lactate 0.7 mmol/L (0.4-2.0) 10/15/22 21:17 Calcium 8.9 mg/dl (8.5-10.1) 10/20/22 07:17 Phosphorus 3.1 mg/dl (2.5-4.9) 10/20/22 07:17 Magnesium 1.8 mg/dl (1.7-2.4) 10/20/22 07:17 Iron 12 mcg/dl (35-175) L 10/16/22 06:26 TIBC 256 mcg/dl (250-450) 10/16/22 06:26 Unsaturated IBC 244 mcg/dl (155-355) 10/16/22 06:26 Transferrin % Sat 5 % (20-50) L 10/16/22 06:26 Total Bilirubin 0.4 mg/dl (0.2-1.0) 10/20/22 07:17 Direct Bilirubin 0.1 mg/dl (0-0.2) 10/15/22 20:09 AST 17 U/L (13-39) 10/20/22 07:17 ALT 14 U/L (7-52) 10/20/22 07:17 Alkaline Phosphatase 85 U/L (34-104) 10/20/22 07:17 Troponin I High Sens 27.5 pg/ml (0-20) H 10/15/22 20:09 Total Protein 6.3 gm/dl (6.0-8.3) 10/20/22 07:17 Albumin 3.3 gm/dl (3.4-5.0) L 10/20/22 07:17 Globulin 3.0 gm/dl (2.5-4.0) 10/20/22 07:17 Albumin/Globulin Ratio 1.1 (0.9-2) 10/20/22 07:17 Vitamin B12 385 pg/ml (180-914) 10/16/22 06:26 Folate 11.73 ng/ml (>5.38) 10/16/22 06:26 Procalcitonin < 0.05 ng/ml (0-0.5) 10/15/22 20:09 Urine Color Yellow 10/15/22 23:34 Urine Appearance Clear (Clear) 10/15/22 23:34 Urine pH 6.5 (4.5-7.5) 10/15/22 23:34 Ur Specific [place] > 1.045 (1.000-1.030) H 10/15/22 23:34 Urine Protein Negative (Negative) 10/15/22 23:34 Urine Glucose (UA) Negative (Negative) 10/15/22 23:34 Urine Ketones Negative (Negative) 10/15/22 23:34 Urine Blood Negative (Negative) 10/15/22 23:34 Urine Nitrite Negative (Negative) 10/15/22 23:34 Urine Bilirubin Negative (Negative) 10/15/22 23:34 Urine Urobilinogen Negative (Negative) 10/15/22 23:34 Ur Leukocyte Esterase Negative (Negative) 10/15/22 23:34 Stool Occult Bld Scrn Negative (Negative) 10/19/22 Unknown Random Vancomycin 10.4 mcg/ml (10-20) 10/18/22 07:18 SARS-CoV-2 (PCR) POSITIVE (Negative) A* 10/15/22 20:09 Influenza Type A (PCR) Negative (Neg) 10/15/22 20:09 Influenza Type B (PCR) Negative (Neg) 10/15/22 20:09 RSV (RT-PCR) Negative (Neg) 10/15/22 20:09 Blood Type O Positive 10/17/22 12:39 Blood Type Recheck O Positive 10/17/22 04:33 Antibody Screen NEGATIVE 10/17/22 12:39 Crossmatch See Detail 10/17/22 12:39 Impressions Chest X-Ray 10/15/22 20:18 XR chest 1V portable CLINICAL HISTORY: Sepsis. COMPARISON STUDY: No previous studies for comparison. FINDINGS: There are median sternotomy wires and prosthetic cardiac valves. Moderate cardiomegaly is noted. Small left and trace right pleural effusions are present. There is no consolidation to suggest pneumonia. There is vascular/chin. Mild left basilar opacity favors atelectasis. No pneumothorax. IMPRESSION: Cardiomegaly. Pulmonary vascular congestion with small left and trace right pleural effusions. ACT 112: Negative or not required by law. Electronically signed by: Louie Connor M.D. 10/16/2022 8:56 AM Abdomen/Pelvis CT 10/15/22 21:06 CT SCAN OF THE ABDOMEN AND PELVIS WITH IV CONTRAST CLINICAL HISTORY: Fever. Recent splenectomy. COMPARISON STUDY: No priors. TECHNIQUE: Following the IV administration of 111 cc of Optiray 320, CT scan of the abdomen and pelvis is performed from the lung bases to the proximal femora. Images are reviewed in the axial, sagittal, and coronal planes. IV contrast was administered without complication. A dose lowering technique was utilized adhering to the principles of ALARA. CT DOSE: 1675.57 mGy.cm FINDINGS: Lung bases: The patient is status post midline sternotomy and cardiac valve surgeries. The heart is enlarged and without pericardial effusion. The coronary arteries are densely calcified. There are trace pleural effusions with dependent atelectasis. Mild intralobular septal thickening is noted at the lung bases. Liver: The contrast-enhanced liver is normal in size, contour, and attenuation. There is no intrahepatic biliary ductal dilatation. The hepatic veins and portal veins are patent. Scattered hepatic cysts measure up to 15 mm. Gallbladder: Unremarkable. Spleen: The spleen is not identified and reported surgically absent. No fluid collection is seen in the operative bed. Pancreas: Moderately atrophic and grossly unremarkable. Adrenal glands: Unremarkable. Kidneys: The contrast enhanced kidneys are normal in size and without hydronephrosis. The kidneys enhance symmetrically. A subcentimeter cortical hypodensity in the left lower pole likely represents a cyst but is too small for definitive characterization. Abdominal vasculature: The abdominal aorta is normal in course and caliber. Bowel: There is mild colonic diverticulosis without CT evidence of acute diverticulitis. No bowel obstruction is seen. The appendix is well-visualized and normal. Peritoneum: There is trace abdominopelvic ascites. No intraperitoneal free air is identified. Mild infiltration of the upper abdominal mesentery is likely related to recent surgery. There is a fat-containing umbilical hernia. Soft tissue induration and skin clips are noted in the anterior abdominal wall. Lymphadenopathy: None. Pelvic viscera: The bladder, prostate, and seminal vesicles unremarkable as visualized. Skeletal structures: The skeletal structures are osteopenic. There is mild lumbosacral spondylosis. No lytic or blastic lesions are seen. IMPRESSION: 1. The spleen is surgically absent. No organized fluid collection is identified in the operative bed. 2. There is trace abdominopelvic ascites, as well as mild infiltration in the upper abdominal mesentery. This is nonspecific and may be related to recent surgery. 3. Cardiomegaly with evidence of fluid overload/mild congestive change. 4. Trace pleural effusions. 5. Colonic diverticulosis without CT evidence of acute diverticulitis. 6. Additional findings as above. ACT 112: Negative or not required by law. Electronically signed by: Carlos Clifford M.D. 10/16/2022 7:51 AM Chest CTA 10/15/22 21:06 CT ANGIOGRAPHY OF THE CHEST, PULMONARY EMBOLUS PROTOCOL CLINICAL HISTORY: Dizziness. Recent surgery. COMPARISON STUDY: Chest radiograph performed earlier today. TECHNIQUE: Following IV administration of 111 mL of Optiray, helical axial images of the chest were obtained utilizing the pulmonary embolus protocol. Maximal intensity projections and sagittal and coronal reformats were viewed on an independent 3D workstation. IV contrast was administered without complication. Automated exposure control was utilized for the study. A dose lowering technique was utilized adhering to the principles of ALARA. FINDINGS: No pulmonary emboli are identified. There is moderate cardiomegaly. There are prosthetic mitral and aortic valve. No thoracic aortic dissection is present. Moderate dilatation of the central pulmonary arteries is present. There is no pericardial effusion. There are prominent bilateral hilar lymph nodes. Trace bilateral pleural effusions are present. There is no pneumothorax. There is mild interlobular septal thickening. Postoperative findings consistent with recent splenectomy are noted. The abdomen and pelvis CT will be reported separately. IMPRESSION: 1. No pulmonary emboli identified. 2. Cardiomegaly. Trace bilateral pleural effusions with suspected mild interstitial pulmonary edema. 3. Dilatation of the central pulmonary arteries. This raises the possibility of pulmonary arterial hypertension. ACT 112: Negative or not required by law. Electronically signed by: Louie Connor M.D. 10/16/2022 9:06 AM Ordered Studies 10/15/22 21:06 CT abd pelvis IV con only Urgent CT angio chest PE protocol Urgent Hospital Course (1) Acquired asplenia: (2) COVID: (3) History of artificial heart valve: Patient is a 57 yr male, who presents with fevers and weakness and found to be COVID positive. COVID 19 infection Not vaccinated for COVID 19 CTA chest: No signs of pneumonia Normal Procalcitonin On COVID precautions Saturating well on room air Generalized weakness and fevers Secondary to above Blood Cultures: No growth to date UA not suggestive of UTI CTA showed no signs of pneumonia CT abdomen not suggestive of any infection Empiric IV vancomycin, cefepime and discontinued Resolved . S/P recent splenectomy As per [facility] and reviewed Pt was found in his truck, was brought to the hospital on 10/03/2022 and was taken immediately to OR for splenectomy d/t splenic rupture. He received multiple units of pRBCs as well as FFP to correct coagulopathy secondary to coumadin. Postoperatively he became suddenly hypotensive with evidence of blood loss and was taken back to OR where ligation of a bleeding short gastric vessel was performed. Pt had short course of CRRT due to RON, but his kidneys quickly recovered and no further dialysis was necessary. He was on iv heparin and coumadin was resumed but INR was subtherapeutic. Cardiology was consulted and placed him on lovenox bridge on discharge. postoperatively he was noted to be in afib but on discharge without tachycardia and therefore cardiology did not feel metoprolol indicated. His hemoglobin was stable for 3 days prior to discharge. Half of the grace from his midline incision were removed upon discharge. He was given splenectomy vaccines prior to discharge. Post splenectomy vaccines given: Bexsero (Meningitis B) 0.5 mL IM vaccine, Menveo 0.5 mL IM vaccine, PedvaxHIB 0.5mL IM vaccine, Pneumococcal 20-valent conjugate IM 0.5mL vaccine --- Patient had currently normal acute bleeding issues while on anticoagulation with IV heparin and Coumadin --- Advised to [facility]-up with [facility] for further recommendations on second dose of vaccines and surgical wound care/staple removal upon discharge --- Advised to continue to use abdominal binder until follow-up with surgeon Sinus bradycardia Bifascicular block on EKG Asymptomatic Metoprolol discontinued Advised to follow-up with cardiology upon discharge H/O Mechanical mitral valve and mechanical aortic valve replacement Subtherapeutic INR On Lovenox bridge to Coumadin prior to admission INR 1.2 Continue Coumadin 7.5 mg today Advised to continue Lovenox SQ and Coumadin till INR is therapeutic and then to continue Coumadin alone Advised to follow-up with Coumadin clinic upon discharge Acute blood loss anemia postsplenectomy at [place], [place] Iron deficiency anemia S/P 1 unit PRBC FOBT Negative Continue iron supplements Hemoglobin stable H/O CVA noncompliant with statin Continue statin As per Prior hospitalist: Questionable history of hypertension.Seems on metoprolol, but the patient is not taking any other medications except Coumadin ?.[facility] - cardiology did not feel metoprolol necessary. Pt had short episode of Afib there post-op though. We will monitor his blood pressure. metoprolol was started here on admission . hydralazine p.r.n. --- Blood pressure stable currently. We will discontinue metoprolol due to bifascicular block, bradycardia. Currently not on any medications. DVT Px Lovenox SQ, Coumadin CODE STATUS Full code Disposition Home Total Time Total Time Spent Total Time Spent (In Minutes): 67 minutes Discharge Plan Discharge Items Patient Disposition: Home - Self-Care Reason For Visit: FEVER, WEAKNESS Discharge Diagnosis: COVID-19 Infection Postsplenectomy state Subtherapeutic INR Postoperative blood loss anemia Bifascicular block Sinus bradycardia Activity: Per Instructions section Exercise/Sports: Wait until after follow-up appointment Non-emergency contact: Primary Care Provider, Surgeon and Specialist Call non-emergency contact if: you have any medication questions, your symptoms worsen, your pain is concerning for you and you have a fever Follow-up/Referrals: David Cee MD [Outside Practitioners] - (Date & Time 10/25/2022 10:40 AM Provider David Cee MD Department Family Practice [facility] ) Diet: Heart Healthy [facility] Attending Provider Instructions: --Follow-up with your primary care physician Dr. Chapin on 10/25/2022 10:40 AM [facility] at [facility] ([address], [place] [address] ) --Follow-up with Coumadin clinic at [facility] clinic at [facility] on Saturday10/22/22 for further recommendations on dosage of enoxaparin and warfarin medications. -- Follow-up with your surgeon for further management of wound grace, postsplenectomy vaccines --Follow-up with your corporate representative as advised --Get Blood test: PT/INR on Saturday10/22/22 and follow-up with Coumadin clinic as advised. --Your PT/INR today 10/20/22 is 1.2. Continue to take Coumadin 7.5 mg daily today and tomorrow. Further recommendations of the dosage as per Coumadin clinic. -- Your metoprolol is discontinued due to low heart rate. Further recommendations as per your corporate representative. Seek immediate medical attention if your symptoms reoccur or worsen Please take all medications as instructed on discharge list below. Please call if you have any questions or problems. You can reach a [facility] hospitalist on duty at [facility] 24 hours a day by calling [phone] Home Isolation COVID-19 Instructions The following information about Home Isolation is from the CDC Website: https://www.cdc.gov/coronavirus/2019-ncov/hcp/mtslicof-qbsknzg-ckbcpf.html Stay home except to get medical care People who are mildly ill with COVID-19 are able to isolate at home during their illness. You should restrict activities outside your home, except for getting medical care. Do not go to work, school, or public areas. Avoid using public transportation, ride-sharing, or taxis. Separate yourself from other people and animals in your home People: As much as possible, you should stay in a specific room and away from other people in your home. Also, you should use a separate bathroom, if available. Animals: You should restrict contact with pets and other animals while you are sick with COVID-19, just like you would around other people. Although there have not been reports of pets or other animals becoming sick with COVID-19, it is still recommended that people sick with COVID-19 limit contact with animals until more information is known about the virus. When possible, have another member of your household care for your animals while you are sick. If you are sick with COVID-19, avoid contact with your pet, including petting, snuggling, being kissed or licked, and sharing food. If you must care for your pet or be around animals while you are sick, wash your hands before and after you interact with pets and wear a face mask. Call ahead before visiting your doctor If you have a medical appointment, call the healthcare provider and tell them that you have or may have COVID-19. This will help the healthcare providers office take steps to keep other people from getting infected or exposed. Wear a face mask You should wear a face mask when you are around other people (e.g., sharing a room or vehicle) or pets and before you enter a healthcare providers office. If you are not able to wear a face mask (for example, because it causes trouble breathing), then people who live with you should not stay in the same room with you, or they should wear a face mask if they enter your room. Cover your coughs and sneezes Cover your mouth and nose with a tissue when you cough or sneeze. Throw used tissues in a lined trash can. Immediately wash your hands with soap and water for at least 20 seconds or, if soap and water are not available, clean your hands with an alcohol-based hand dna analyst that contains at least 60% alcohol. Clean your hands often Wash your hands often with soap and water for at least 20 seconds, especially after blowing your nose, coughing, or sneezing; going to the bathroom; and before eating or preparing food. If soap and water are not readily available, use an alcohol-based hand dna analyst with at least 60% alcohol, covering all surfaces of your hands and rubbing them together until they feel dry. Soap and water are the best option if hands are visibly dirty. Avoid touching your eyes, nose, and mouth with unwashed hands. Avoid sharing personal household items You should not share dishes, drinking glasses, cups, eating utensils, towels, or bedding with other people or pets in your home. After using these items, they should be washed thoroughly with soap and water. Clean all high-touch surfaces everyday High touch surfaces include counters, tabletops, doorknobs, bathroom fixtures, toilets, phones, keyboards, tablets, and bedside tables. Also, clean any surfaces that may have blood, stool, or body fluids on them. Use a household cleaning spray or wipe, according to the label instructions. Labels contain instructions for safe and effective use of the cleaning product including precautions you should take when applying the product, such as wearing gloves and making sure you have good ventilation during use of the product. Monitor your symptoms Seek prompt medical attention if your illness is worsening (e.g., difficulty breathing).Beforeseeking care, call your healthcare provider and tell them that you have, or are being evaluated for, COVID-19. Put on a face mask before you enter the facility. These steps will help the healthcare providers office to keep other people in the office or waiting room from getting infected or exposed. Ask your healthcare provider to call the local or state health department. Persons who are placed under active monitoring or facilitated self- monitoring should follow instructions provided by their local health department or occupational health professionals, as appropriate. When working with your local health department check their available hours. If you have a medical emergency and need to call 911, notify the dispatch personnel that you have, or are being evaluated for COVID-19. If possible, put on a face mask before emergency medical services arrive. Discontinuing home isolation Patients with confirmed COVID-19 should remain under home isolation precautions until the risk of secondary transmission to others is thought to be low. The decision to discontinue home isolation precautions should be made on a [id number] basis, in consultation with healthcare providers and [facility] and [facility] health departments. Pending Studies at Discharge: Yes Studies:: Blood Cultures Stand-Alone Forms: My [facility], Smoking Cessation Medications and DC Order Prescriptions: New magnesium oxide 400 mg (241.3 mg magnesium) Tablet 400 mg PO QAM Qty: 10 0RF ferrous sulfate 325 mg (65 mg iron) Tablet,Delayed Release (Dr/Ec) 325 mg PO BIDM Qty: 60 1RF Continued atorvastatin 20 mg tablet 20 mg PO DAILY hydrocodone-acetaminophen 5-325 mg tablet 1 tab PO Q4H PRN (Reason: Pain) enoxaparin 120 mg/0.8 mL syringe 120 mg subcut Q12H Rx Instructions: ORDERED 10/11/22 FOR 10 DAYS. PT DENIES USE. warfarin 2.5 mg tablet 2.5 mg PO DIRECTED Qty: 100 0RF Rx Instructions: PER PT "7.5-10 MG DAILY DIRECTED". warfarin 5 mg tablet 5 mg PO DIRECTED 100 Days Qty: 100 0RF Rx Instructions: PER PT "7.5-10 MG DAILY DIRECTED". Discontinued metoprolol tartrate 50 mg tablet 50 mg PO BID Discharge Orders: Discharge Order (Routine); Ordered 10/20/22 Ordered By: Kosta Briceño Admission Data Admit Date/Time: 10/16/22 00:40 Attending Provider: Kosta Briceño Admit Provider: Raudel Ramirez Primary Care Provider: [id number]
== END 2022-10-20 15:45 | disposition home or self-care (01) | DRG 178 ==
LOC: ED 19:40 → EDINP 10-16 00:40 → SUATTDRO 10-16 00:40 → 2W 10-16 03:39